=== PATIENT | female | born 1955 | race Caucasian/White ===

== ENCOUNTER 2016-09-19 09:02 | Inpatient (IN) | payer BC ==
--- NOTE | 2016-09-17 02:32 | HP ---
HISTORY AND PHYSICAL: DATE OF SURGERY/ADMISSION: 09/19/16 PROCEDURE: Left total knee arthroplasty. CHIEF COMPLAINT: Left knee pain. HISTORY OF PRESENT ILLNESS: The patient is a very pleasant 61-year-old female, who presents today for history and physical examination prior to undergoing a left total knee arthroplasty. In brief, the patient has had several years of left knee pain, which has been worsening to the point where she is unable to walk half a block without having severe knee pain. She has undergone physical therapy, steroid injections, anti-inflammatories, brace wear, as well as a few arthroscopies; however, has not had adequate pain relief and has elected to undergo a left total knee arthroplasty on 09/19/16, by Dr. Adelaide Grewal. PAST MEDICAL HISTORY: 1. Superficial phlebitis of the left leg. 2. GERD. 3. Hypercholesterolemia. 4. Restless leg syndrome. 5. Asthma. 6. Osteoarthritis. 7. Postmenopausal bleeding. PAST SURGICAL HISTORY: 1. Bilateral carpal tunnel release in . 2. Bilateral knee arthroscopies, left knee x2, right knee x1, in 2001, 2004, and 2003 respectively. 3. Right shoulder surgery including rotator cuff repair. 4. D and C in 2015 for postmenopausal bleeding, negative for malignancy. CURRENT MEDICATIONS: 1. Pantoprazole 40 mg b.i.d. 2. Ropinirole HCL 0.5 mg two tablets daily. 3. Atorvastatin 20 mg daily. 4. Naproxen 220 mg p.r.n. 5. Vitamin D3 at 100 units daily. 6. Montelukast 10 mg p.o. daily. 7. ProAir p.r.n. 8. Multivitamin daily. 9. CPAP machine nightly. ALLERGIES: ZOCOR, CODEINE, causing vomiting and rash; ATROPINE, causing tachycardia; SYMBICORT, causing shortness of breath; ADHESIVE TAPE, causing a rash. FAMILY MEDICAL HISTORY: Father with elevated cholesterol and hypertension. Mother with glaucoma, heart disease, hypertension, lung cancer. Brother with diabetes. Sister with hypothyroidism. 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 No IV drug use. REVIEW OF SYSTEMS: General: Negative for fevers, chills or night sweats. Difficulty with anesthesia. The patient has experienced shortness of breath at the end of anesthesia. HEENT: Negative for headache, lightheadedness or syncopal episodes. Integumentary: Negative for abrasions, lesions or any open wounds. Cardiothoracic: Negative for chest pain, palpitations or edema. Negative for hypertension. Positive for elevated cholesterol. Pulmonary: Negative for shortness of breath with exertion, chronic cough or COPD. History of asthma; however, no recent exacerbation. GI: Negative for nausea, vomiting or constipation. Positive for GERD. : Negative for nocturia, urinary frequency or urgency. No history of UTIs or kidney problems. Musculoskeletal: Positive for left knee pain. Negative for chronic back pain. Negative for neck pain. Neuro: Negative for paresthesias or numbness. No history of seizure , stroke or epilepsy. Endocrine: Positive for borderline diabetes, on diet and weight control. Negative for thyroid issues. Hematologic: Negative for easy bruising, anemia or excessive bleeding. Questionable DVT versus phlebitis in the past. Infectious Disease: Negative for MRSA, hepatitis C or HIV. PHYSICAL EXAMINATION GENERAL: Well appearing, in no acute distress, alert and oriented x3. VITAL SIGNS: Blood pressure 132/72, pulse 80, respirations 16. HEENT: Normocephalic, atraumatic. EOMI. PULMONARY: Lungs clear to auscultation bilaterally. No crackles, rhonchi or wheezes. Negative CVA tenderness bilaterally. CARDIAC: Regular rate and rhythm. No murmurs, gallops or rubs. No edema noted. ABDOMEN: Obese, soft, nontender, nondistended. No organomegaly palpable. NEUROLOGIC: Alert and oriented x3. Cranial nerves grossly intact. Sensation intact to light touch in bilateral lower extremities. MUSCULOSKELETAL: Left knee with range of motion of 5 to 90. Posterior tibial pulses 2+ bilaterally. Positive moderate edema in bilateral lower extremities. The patient is currently wearing compression stockings, nonpitting edema. Negative Porter's sign bilaterally. Positive equal dorsiflexion and plantar flexion. Antalgic gait favoring the left side. DIAGNOSTIC STUDIES/LAB DATA: Left knee x-ray dated 08/09/16, shows degenerative changes in medial compartment of the left knee with mild varus deformity. IMPRESSION AND PLAN: The patient is a very pleasant 61-year-old female, who elected to undergo a left total knee replacement by Dr. Adelaide Grewal on . We reviewed the surgical procedure in detail. The patient had no further questions or concerns. She signed the risks statement. Medications for postoperative pain management including Percocet, Coumadin, and Colace were called in to the patient's pharmacy at the [facility] in [place]. She will follow up with if she has any questions or concerns. She had a preoperative evaluation done by [facility] on 09/06/16, where she was considered an intermediate risk for surgery due to diabetes and was cleared without any additional cardiac testing by Dr. Hannah Colin. CRISTINO INFANTE [id number]/[facility] #: [id number] JO
[~2016-09-19 09:02] MED LIST: Acetaminophen IV 1GM/100ML * 100 ML IVPB ONE; Buffered Lidocaine 1% SYR 3ML* 3 ML/SYR SYRINGE INTRADERM ONE; Famotidine IV* 10 MG/ML 2 ML (20 mg) IV ONE; Gabapentin CAP(*) 300 MG PO ONE; Levalbuterol 0.63MG/3ML NEB INH ONE; Metoclopramide TAB* 10 MG PO ONE; celeCOXIB CAP* 200 MG PO ONE
[2016-09-19] MEDS ORDERED: Gabapentin CAP(*) 300 MG ONE (09:20)
[2016-09-19] MEDS ORDERED: Levalbuterol 1.25MG/0.5ML NEB ONE (09:20)
[2016-09-19] MEDS ORDERED: Famotidine IV* 10 MG/ML 2 ML (20 mg) ONE (09:20)
[2016-09-19] MEDS ORDERED: celeCOXIB CAP* 100 MG ONE (09:20)
[2016-09-19] MEDS ORDERED: Metoclopramide TAB* 10 MG ONE (09:20)
[2016-09-19] MEDS ORDERED: ceFAZolin 2 GM PREMIX (*) 2 GM/50 ML BAG IVPB ONE (09:21)
[2016-09-19] MEDS ORDERED: Buffered Lidocaine 1% SYR 3ML* 3 ML/SYR SYRINGE ONE (09:21)
[2016-09-19] MEDS ORDERED: Acetaminophen IV 1GM/100ML * 100 ML ONE (09:25)
[2016-09-19] MEDS ORDERED: Dexamethasone IV* 4 MG/ML 1 ML (4 MG) ONE (10:54)
[2016-09-19] MEDS ORDERED: Morphine PF AMP (0.5MG/ML)* 5 MG/10 ML AMP ONE (10:54)
[2016-09-19] MEDS ORDERED: Lidocaine 2% MPF* 2 ML VIAL ONE (10:54)
[2016-09-19] MEDS ORDERED: Midazolam* 1 MG/ML 5 ML VIAL (5 MG) ONE (10:54)
[2016-09-19] MEDS ORDERED: KETAMINE HCL* 50 MG/ML 10 ML VIAL ONE (10:54)
[2016-09-19] MEDS ORDERED: Ondansetron INJ* 2 MG/ML VIAL ONE (10:54)
[2016-09-19] MEDS ORDERED: Bupivacaine 0.5% SDV PF* 30 ML VIAL ONE (10:54)
[2016-09-19] MEDS ORDERED: fentaNYL* 50 MCG/ML 2 ML VIAL (100 MCG VIAL) ONE (10:54)
[2016-09-19] MEDS ORDERED: Propofol* 10 MG/ML 20 ML BTL IV PUSH ONE (10:54)
[2016-09-19] MEDS ORDERED: Midazolam* 1 MG/ML 2 ML VIAL (2 MG) ONE (11:53)
[2016-09-19] MEDS ORDERED: Propofol* 500 MG/50 ML BTL ONE (12:09)
[2016-09-19] MEDS ORDERED: Phenylephrine INJ* 10 MG/ML 1 ML VIAL (10 MG) ONE (12:22)
[2016-09-19] MEDS ORDERED: fentaNYL* 50 MCG/ML 2 ML VIAL (100 MCG VIAL) IV PRN (13:11)
[2016-09-19] MEDS ORDERED: Ondansetron INJ* 2 MG/ML VIAL IV PRN ×2 (13:17)
[2016-09-19] MEDS ORDERED: diPHENhydraMINE IV* 50 MG/ML 1 ml VIAL (BENADRYL) IV PRN (13:17)
[2016-09-19] MEDS ORDERED: Naloxone* 0.4 MG/ML 1 ML VIAL IV PRN (13:17)
[2016-09-19] MEDS ORDERED: oxyCODONE/Acetamin 5/325 MG* TAB PO PRN (13:17)
[2016-09-19] MEDS ORDERED: EPHEDrine (Pressors)* 50 MG/ML VIAL IV PUSH PRN (13:26)
[2016-09-19] MEDS ORDERED: Ropivacaine* 300 MG in NS 0.9% 250 ML* 240 ML EPIDURAL SCH (14:00)
[2016-09-19] MEDS ORDERED: Morphine INJ* 2 MG/ML 1 ML CARPUJECT IV PRN (14:29)
[2016-09-19] MEDS ORDERED: Polyethylene Glycol 3350* 17 GM PACKET PO PRN (14:29)
[2016-09-19] MEDS ORDERED: Magnesium Hydroxide LIQ* 30 ML UDC PO PRN (14:29)
[2016-09-19] MEDS ORDERED: Acetaminophen TAB* 325 MG PO PRN (14:29)
[2016-09-19] MEDS ORDERED: Bisacodyl SUPP* 10 MG SUPP PR PRN (14:29)
[2016-09-19] MEDS ORDERED: Albuterol HFA INHALER* 8 gm MDI INH PRN (14:34)
[2016-09-19] MEDS ORDERED: Furosemide TAB* 20 MG PO PRN (14:34)
[2016-09-19] MEDS ORDERED: Dextrose 50% Syringe 50 ML* 25 GM/50 ML SYRINGE IV PUSH PRN (14:46)
--- NOTE | 2016-09-19 15:08 | RAD ---
Indication: Post op LEFT total knee replacement. Comparison: August 09, 2016 radiographs. Technique: Portable AP and cross table lateral views LEFT knee. Report: Status post total knee replacement. Post-op fluid and gas is seen in the joint space and anterior subcutaneous tissues. Alignment is anatomic. No periprosthetic fracture evident. IMPRESSION: Normal post-op appearance following LEFT total knee replacement.
[2016-09-19] MEDS ORDERED: Warfarin TAB(*) 6 MG PO ONE (17:00)
--- NOTE | 2016-09-19 17:21 | CONS ---
CONSULTATION REPORT: DATE OF CONSULT: 09/19/16 REQUESTING PHYSICIAN FOR CONSULT: Dr. Grewal. ATTENDING PHYSICIAN WHILE IN THE HOSPITAL: Dr. Mike Mead (report being dictated by Brett Kan NP). PRIMARY CARE PROVIDER: Dr. Long. REASON FOR MEDICAL CONSULT: Medical management of comorbid medical conditions. HISTORY OF PRESENT ILLNESS: I refer you to Dr. Grewal's H and P for further details. In short, Ms. Gunter is a 61-year-old female patient. She has a history of impaired hyperlipidemia, history of restless legs syndrome, asthma, arthritis, hypothyroidism, history of aortic regurg, history of ANALY, and diabetes, not on medications as of yet, she comes in to the hospital today for an elective left total knee as she has in the outpatient setting been having significant pain and it has been affecting her activities of daily living. Conservative management was attempted; however, despite this, the patient continued to have significant pain and it was felt that she would benefit from a total knee replacement on the left side. She was evaluated in the PACU. She said she feels a little lightheaded, but denies feeling like she is going to faint. She denies any syncope. Denies any chest pain or shortness of breath. She says she feels tired. She denies any nausea. She says that she is unable to feel her lower extremities at this point, she did have an epidural and spinal. She denies having any abdominal discomfort or any chest pain or shortness of breath. Again, she does have a fairly significant medical history and the hospitalist service was asked to evaluate and to help manage. PAST MEDICAL HISTORY: Significant for: 1. GERD. 2. Hyperlipidemia. 3. Restless legs syndrome. 4. Asthma. 5. Arthritis. 6. Hypothyroidism. 7. Aortic regurg. 8. ANALY. 9. Diabetes. Her last A1c according to medical records was 7.1 according to the records sent from Dr. Long's office. PAST SURGICAL HISTORY: 1. She has had a carpal tunnel. 2. Just had a left total knee replacement. 3. D and C. 4. Knee arthroscopies bilaterally. 5. Rotator cuff repair. MEDICATIONS: Home medications include: 1. Ropinirole 2 tabs p.o. at bedtime. 2. Protonix 40 mg p.o. b.i.d. 3. Naproxen 2 tablets p.o. b.i.d. 4. Multivitamin 1 tablet daily. 5. Singulair 10 mg p.o. at bedtime. 6. Lasix 20 mg daily as needed. 7. Vitamin D3 2000 units p.o. daily. 8. Lipitor 20 mg daily. 9. Albuterol 2 puffs q.4 hours as needed. 10. Tylenol 650 mg p.o. every 4 hours as needed. ALLERGIES TO MEDICATIONS: Include ATENOLOL, ATROPINE, SIMVASTATIN, CODEINE, ADHESIVE TAPE, SYMBICORT, and EKG PADS. FAMILY HISTORY: Mother had a history of lung cancer. Father, history of colon cancer. SOCIAL HISTORY: She does not smoke, does not drink. She works as a nurse. Surrogate decision maker not appointed at this point. REVIEW OF SYSTEMS: There is no documented fever. She denies having any significant weight change. There was no double vision. There is no ear discharge. She denies having any rhinorrhea. No sore throat, no thyroid enlargement. Denies having any chest pain. There was no orthopnea, no nocturnal dyspnea. There is no abdominal pain. No nausea, no vomiting. No dysuria, no frequency. No loss of consciousness. No pruritus, and no skin ulceration s. Review of 14 systems completed, all others negative. PHYSICAL EXAM: Blood pressure 136/75 with a pulse of 89, respirations 18, O2 sat 99%, temperature 97.7. General: At this time, Ms. Gunter is a 61-year- old female patient. She is sitting in the PACU stretcher. She does not appear to be in any acute distress. She is awake and alert. She is oriented x3. HEENT: Head atraumatic, normocephalic. Eyes: EOMs are intact. Sclerae anicteric. Not pale. Neck: Supple. Throat: Oral mucosa appears to be moist. No oropharyngeal erythema. Heart: Sounds, S1, S2. Regular rate and rhythm. She did have a grade 2 to 3 systolic aortic murmur heard. Lungs: Clear to auscultation bilaterally. No wheezes, rales, or rhonchi. Abdomen: Soft, flat, nontender. Bowel sounds present. Extremities: Distal CSM checks were intact. She is unable to dorsiflex the feet at this point and sensation is not there at this point because of the epidural and spinal, but she does have good bilateral pulses and her feet are warm. She is able to move the upper extremities with 5/5 strength. Neurologically, she awakens to her name. She is alert, she is oriented x3. She had no gross focal deficits. Speech is clear. Her skin is intact with the exception to the left leg, she has an incision that is covered with an Azeem bandage, it is clean, dry, and intact. DIAGNOSTIC STUDIES/LAB: Her labs preoperatively revealed WBC of 6.3, RBC of 4.45, hemoglobin 13.1, hematocrit of 39, platelet count of 270. Sodium 136, potassium 4.2, chloride 106, bicarb 30, BUN 19, creatinine of 0.92, glucose of 129. Her A1c again according to Dr. Long's record is 7.1. Urine preop was negative. EKG preoperatively showed a normal sinus rhythm. No ST elevation or T-wave inversion, rate of 68. Old medical records were reviewed. ASSESSMENT AND PLAN: Ms. Gunter is a 61-year-old female patient coming into orthopedic service today for an elective left total knee. Hospitalist service was asked to evaluate in consult for medical management of comorbid medical conditions. Recommendations at this point are: 1. Status post left total knee replacement: We will defer the management of this to Dr. Grewal and her team. 2. Gastroesophageal reflux disease: Continue PPI therapy. 3. Hyperlipidemia: Continue current medical regimen. She is on Lipitor. 4. Restless legs syndrome: Continue meds as prescribed. 5. Asthma: P.r.n. albuterol has been ordered. We will continue with this and follow along. Her lungs are clear. We will need to follow with aggressive pulmonary toileting. 6. Arthritis: Continue meds as prescribed. 7. Hypothyroidism: Currently, not an active issue. Should follow up with primary. She does not want to take medications. 8. History of aortic regurgitation: Follow with the primary. Not an active issue currently. 9. Obstructive sleep apnea: I have ordered CPAP and overnight oximetry. 10. Diabetes: Because of the recent surgery, I did put her on a sliding scale. 11. DVT prophylaxis: Deferred to the primary team. 12. Fluids, electrolytes, nutrition: I would recommend a consistent carb diet. 13. Code status, full code. TIME SPENT: On the consult was approximately 60 minutes, greater than half the time was spent [id number] with the patient obtaining my history and physical, other half the time spent going over the plan of care with the patient and implementing plan of care. I did discuss the plan of care with my attending, Dr. Mead; he is in agreement. BRETT KAN NP CC: Dr. Long; Dr. Grewal * [id number]/[facility] #: [id number] MTDD
[2016-09-19] MEDS ORDERED: ceFAZolin 1 GM in Dextrose (*) 1 GM/50 ML BAG IVPB SCH (17:30)
[2016-09-19] MEDS: Insulin LISPRO* 1 UNITS UNIT SUBCUT SCH (17:49)
[2016-09-19] MEDS: Atorvastatin* 20 MG TAB PO SCH (18:13)
[2016-09-19] MEDS: ceFAZolin 1 GM in Dextrose (*) 1 GM/50 ML BAG IVPB SCH (20:13)
[2016-09-19] MEDS: Docusate CAP* 100 MG PO SCH (20:15)
[2016-09-19] MEDS: rOPINIRole TAB* 1 MG PO SCH (20:15)
[2016-09-19] MEDS: Montelukast Sodium TAB* 10 MG PO SCH (20:15)
[2016-09-19] MEDS: Omeprazole CAP* 20 MG PO SCH (20:15)
[2016-09-19] MEDS: oxyCODONE/Acetamin 5/325 MG* TAB PO PRN (20:19)
[2016-09-20] MEDS: oxyCODONE/Acetamin 5/325 MG* TAB PO PRN ×4 (00:21→12:15)
[2016-09-20] MEDS: ceFAZolin 1 GM in Dextrose (*) 1 GM/50 ML BAG IVPB SCH ×2 (03:37→12:15)
[2016-09-20] MEDS ORDERED: Ondansetron TAB* 4 MG PO PRN (03:45)
[2016-09-20] MEDS ORDERED: diPHENhydraMINE IV* 50 MG/ML 1 ml VIAL (BENADRYL) IV PRN (03:45)
[2016-09-20] MEDS ORDERED: Ondansetron INJ* 2 MG/ML VIAL IV PRN (03:45)
[2016-09-20] MEDS: oxyCODONE TAB* 5 MG TAB PO PRN ×3 (05:57→18:13)
[2016-09-20 07:07] LABS: Hematocrit 35 % (35-47); Hemoglobin 11.5 g/dl (12.0-16.0); Mean Corpuscular HGB Conc 33 g/dl (31-36); Mean Corpuscular Hemoglobin 29 pg (27-31); Mean Corpuscular Volume 88 fL (80-97); Mean Platelet Volume 8 um3 (7.4-10.4); Red Blood Count 3.92 10^6/ul (4.0-5.4); Red Cell Distribution Width 14 % (10.5-15); White Blood Count 8.8 10^3/ul (3.5-10.8)
[2016-09-20 07:14] LABS: BUN/Creatinine Ratio 17.6 (8-20); Calcium 8.8 mg/dL (8.6-10.3); EGFR African American 80.6 (>60); EGFR Non-African American 62.6 (>60)
--- NOTE | 2016-09-20 07:45 | PN ---
Progress Note - Progress Note SOAP: Subjective: Pt. reports pain is controlled, thigh and posterior knee pain this AM. Objective: LLE - dressing c/d/i. distally +df/pf, full sens lt, 2+ dp pulse. Vital Signs: Temp Pulse Resp BP Pulse Ox 98.4 F 76 16 109/53 99 09/20/16 04:01 09/20/16 04:01 09/20/16 05:57 09/20/16 04:01 09/20/16 04:01 Laboratory Results - last 24 hr 09/19/16 09/19/16 09/20/16 17:25 20:39 06:42 WBC 8.8 RBC 3.92 L Hgb 11.5 L Hct 35 MCV 88 MCH 29 MCHC 33 RDW 14 Plt Count 258 MPV 8 Neut % (Auto) 78.2 Lymph % (Auto) 14.9 L [place] % (Auto) 6.8 Eos % (Auto) 0 Baso % (Auto) 0.1 Absolute Neuts (auto) 6.9 Absolute Lymphs (auto) 1.3 Absolute Monos (auto) 0.6 Absolute Eos (auto) 0 Absolute Basos (auto) 0 Absolute Nucleated RBC 0 Nucleated RBC % 0 INR (Anticoag Therapy) Sodium Potassium Chloride Carbon Dioxide Anion Gap BUN Creatinine Est GFR ( Amer) Est GFR (Non-Af Amer) BUN/Creatinine Ratio Glucose POC Glucose (mg/dL) 202 H 261 H Calcium 09/20/16 09/20/16 09/20/16 06:42 06:42 07:23 WBC RBC Hgb Hct MCV MCH MCHC RDW Plt Count MPV Neut % (Auto) Lymph % (Auto) [place] % (Auto) Eos % (Auto) Baso % (Auto) Absolute Neuts (auto) Absolute Lymphs (auto) Absolute Monos (auto) Absolute Eos (auto) Absolute Basos (auto) Absolute Nucleated RBC Nucleated RBC % INR (Anticoag Therapy) 1.20 H Sodium 134 Potassium 4.0 Chloride 100 L Carbon Dioxide 28 Anion Gap 6 BUN 16 Creatinine 0.91 Est GFR ( Amer) 80.6 Est GFR (Non-Af Amer) 62.6 BUN/Creatinine Ratio 17.6 Glucose 175 H POC Glucose (mg/dL) 182 H Calcium 8.8 Assessment: 61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 d/c to home with vns possible tomorrow.
[2016-09-20] MEDS: Omeprazole CAP* 20 MG PO SCH ×2 (08:09→20:41)
[2016-09-20] MEDS: Docusate CAP* 100 MG PO SCH ×2 (08:09→20:41)
[2016-09-20] MEDS: Insulin LISPRO* 1 UNITS UNIT SUBCUT SCH ×3 (08:09→18:07)
[2016-09-20] MEDS: Vitamin THERAPEUTIC TAB PO SCH (08:09)
--- NOTE | 2016-09-20 10:03 | OP ---
OPERATIVE NOTE: DATE OF SURGERY: 09/19/16 DATE OF : 53 ATTENDING SURGEON: Adelaide Grewal MD PIPE CUTTER: CRISTINO Lizama ANESTHESIOLOGIST: Dr. Jaimes. ANESTHESIA: Spinal. PRE-OP DIAGNOSIS: Severe end-stage degenerative osteoarthritis of the left knee joint. POST-OP DIAGNOSIS: Severe end-stage degenerative osteoarthritis of the left knee joint. OPERATIVE PROCEDURE: Left total knee arthroplasty. COMPLICATIONS: None. TOURNIQUET TIME: 63 minutes. ESTIMATED BLOOD LOSS: 200 cc. SPECIMEN: Bone and cartilage from the left knee joint sent to pathology. HARDWARE USED: This is cemented [employer] total knee hardware with 2 packages of Simplex bon e cement. For the femur, a size 4 left Oxinium femoral component. For the tibia, a size 4 left tib ial baseplate. An 11 mm posterior stabilized articular insert and a 29-mm 3-peg all-poly patella. BRIEF HISTORY: Ms. Gunter is a 61-year-old female with years of increasingly severe left knee pain . She failed conservative treatment with anti-inflammatories, pain medication, physical therapy, at tempted weight loss, and intraarticular injections. Radiographs and physical exam confirmed bone-on -bone severe end-stage arthritis to the left knee joint. She elected to undergo left total knee art hroplasty due to continued pain and decreased quality of life. Informed consent was obtained from the patient. She understood the risks of the surgery included, b ut were not limited to bleeding, infection, damage to nearby structures, continued pain, need for fu rther surgery, intraoperative fracture, nerve palsy, hardware failure or loosening, stroke, heart at tack, blood clot, and . She wished to proceed. INTRAOPERATIVE FINDINGS: Intraoperatively, the patient was noted to have severe end-stage arthritis of the medial and patellofemoral compartments with complete loss of cartilage and extensive osteoph yte formation. DESCRIPTION OF PROCEDURE: Ms. Gunter was identified in the preanesthesia unit. Her left lower extr emity was marked as the correct operative side. Consent was signed and placed in the chart. The pa tient was taken to the operating room and placed under spinal anesthesia. A Cary catheter was plac ed. Tourniquet was placed on the left side. Left lower extremity was prepped and draped in the usu al sterile fashion. Preop time-out was made to correctly identify the patient's side and site. Ricardo ropriate perioperative antibiotics were given within 1 hour of incision. Tourniquet was inflated and total tourniquet time for this procedure was 63 minutes. A 14-cm midlin e incision was made with a 10 blade. This was carried down through the subcutaneous fat and the ext ensor mechanism. The extensor mechanism was then opened and using a standard medial parapatellar ar throtomy. Patella was subluxed laterally. Electrocautery was used to subperiosteally elevate soft tissue off the superomedial tibia to the midsagittal plane. The knee was flexed up. The anterior h orn of the lateral meniscus and the ACL were completely released. A drill was used to enter the dis nilam femur. Intramedullary distal femoral cutting guide was pinned into position on the distal femur . Oscillating saw was used to make the appropriate distal femoral cuts. Next, the external rotation guide was placed on the distal femur. The femur was sized to a size 4. A size 4 multi-cutting jig was pinned on the distal femur and the oscillating saw was used to make the appropriate 4 chamfer cuts. All bony fragments were carefully removed. The PCL was completely released and the tibia was subluxed anteriorly. Extramedullary tibial cutting guide was pinned on the proximal tibia. Oscillating saw was used to make the appropriate proximal tibial cut. The bone was carefully removed. The knee was brought out into extension. There was go od medial and lateral ligamentous balancing. The knee had full extension. Flexion and extension ga ps were well balanced. The knee was flexed up and lamina stations superintendent was placed both medially and late rally. Any remaining meniscus was carefully removed using electrocautery. Any posterior femoral co ndylar osteophytes were removed using a curved osteotome and curette. Trial left size 4 femur was impacted onto the distal femur and had good fit. The box for the senior cognos developer ior stabilized implant was prepared using a reamer and box cut osteotome. A trial size 4 tibial tra y and 9-mm insert trial was placed. The knee was taken through a range of motion and noted to have full extension and 120 degrees of flexion with good patellofemoral tracking. The patella was everted. A 9-mm of patellar bone and cartilage was carefully removed with an oscill ating saw. The patella was sized to a size 29. The 3-peg holes were drilled through the size 29 gu melody. A trial 29 patella was placed and the knee was taken through a range of motion. There was sat isfactory patellofemoral tracking. All trials were carefully removed. The tibia was subluxed anteriorly and sized to a size 4. Proxim al tibia was prepared using a keel punch. All bony cut surfaces were copiously irrigated with steri le saline and dried. The final implants were cemented into place starting with the tibia followed b y the femur and last the patella. An 11-mm insert trial was placed while the knee was brought out i nto full extension. The cement was allowed to fully cure and the tourniquet was turned down at 63 m inutes. Once the cement was fully cured, the insert trial was removed. The capsule was checked for any bleeding or excess cement. Trial insert chosen was an 11-mm posterior stabilized articular ins ert. This was locked into position on the tibial tray. Stability of the insert was checked and rec hecked and noted to be stable. The knee was copiously irrigated with sterile saline. The extensor mechanism was closed using inter rupted #1 Vicryl's. The rest of the incision was closed in a layered fashion using 0 and 2-0 Vicryl 's. Skin was closed using running 3-0 nylon suture. Sterile Xeroform, 4x4's, and Webril were used to cover the incision. Azeem wrap and cold pack were placed over this. The patient's anesthesia was r eversed without difficulty. She was taken to the PACU in stable condition. Intended weightbearing will be weightbearing as tolerated. Intended DVT prophylaxis will be Coumadin with a Lovenox bridge . [id number]/[facility] #: [id number]
[2016-09-20] MEDS: Enoxaparin(*) 30 MG/0.3 ML SYR SUBCUT SCH (12:15)
[2016-09-20] MEDS ORDERED: Warfarin TAB(*) 4 MG PO ONE (17:00)
--- NOTE | 2016-09-20 17:13 | PN ---
Subjective Date of Service: 09/20/16 Interval History: Patient seen this afternoon. Reports she had been having double vision that began shortly after PT this afternoon. Says her eyes feel very dry. During my examination the double vision resolved but the dryness and blinking persisted. Otherwise states she has been doing OK, pain is fairly well controlled. Family History: Unchanged from Admission Social History: Unchanged from Admission Past Medical History: Unchanged from Admission Objective Active Medications: Acetaminophen (Tylenol Tab*) 650 mg PO Q4H PRN Albuterol (Ventolin Hfa Inhaler*) 2 puff INH Q4H PRN Atorvastatin Calcium (Lipitor*) 20 mg PO QPM AMY Bisacodyl (Dulcolax Supp*) 10 mg MN DAILY PRN Dextrose (D50w Syringe 50 Ml*) 12.5 gm IV PUSH .FOR FS < 60 - SS PRN Diphenhydramine HCl (Benadryl Iv*) 12.5 mg IV Q6H PRN Docusate Sodium (Colace Cap*) 100 mg PO BID AMY Enoxaparin Sodium (Lovenox(*)) 30 mg SUBCUT Q24H AMY Lactated Ringer's (Lactated Ringers 1000 Ml Bag*) 1,000 mls @ 100 mls/hr IV PER RATE AMY Insulin Human Lispro (Humalog*) 0 units SUBCUT AC AMY Lactulose (Lactulose*) 30 ml PO Q6H PRN Magnesium Hydroxide (Milk Of Magnesia Liq*) 30 ml PO Q6H PRN Montelukast Sodium (Singulair Tab*) 10 mg PO BEDTIME AMY Morphine Sulfate (Morphine Inj (Syringe)*) 2 mg IV Q2H PRN Multivitamins (Theragran Tab*) 1 tab PO DAILY AMY Omeprazole (Prilosec Cap*) 20 mg PO BID AMY Ondansetron HCl (Zofran Inj*) 4 mg IV Q6H PRN Ondansetron HCl (Zofran Tab*) 4 mg PO Q6H PRN Oxycodone HCl (Roxycodone Tab*) 10 mg PO Q4H PRN Oxycodone/Acetaminophen (Percocet 5/325 Tab*) 1 tab PO Q3H PRN Oxycodone/Acetaminophen (Percocet 5/325 Tab*) 2 tab PO Q3H PRN Polyethylene Glycol/Electrolytes (Miralax*) 17 gm PO DAILY PRN Polyvinyl Alcohol (Polyvinyl Alcohol 1.4% Opth*) 1 drop BOTH EYES Q2H PRN Ropinirole HCl (Requip Tab*) 1 mg PO BEDTIME AMY Vital Signs 09/19/16 09/19/16 09/19/16 18:00 18:28 18:34 Temperature 98.2 F Pulse Rate 93 Respiratory 18 16 Rate Blood Pressure 152/69 (mmHg) O2 Sat by Pulse 98 98 Oximetry 09/19/16 09/19/16 09/19/16 19:03 19:40 20:12 Temperature 98.2 F 98.8 F Pulse Rate 93 111 Respiratory 16 16 16 Rate Blood Pressure 120/69 143/79 (mmHg) O2 Sat by Pulse 96 98 96 Oximetry 09/20/16 09/20/16 09/20/16 12:15 14:15 15:49 Temperature 97.9 F Pulse Rate 94 Respiratory 18 18 20 Rate Blood Pressure 124/71 (mmHg) O2 Sat by Pulse 96 Oximetry Oxygen Devices in Use Now: None Appearance: Middle-aged, F, laying in chair in NAD Eyes: No Scleral Icterus Ears/Nose/Mouth/Throat: Mucous Membranes Moist Neck: NL Appearance and Movements; NL JVP Respiratory: Symmetrical Chest Expansion and Respiratory Effort, Clear to Auscultation Cardiovascular: RRR, - - NATALIE Abdominal: NL Sounds; No Tenderness; No Distention Lymphatic: No Cervical Adenopathy Extremities: No Edema Skin: No Rash or Ulcers Neurological: Alert and Oriented x 3, - - network architect intact, normal EOM, no misalignment in vision, PERRLA, frequent blinking, some muscle fasciculations in R lower eye lid Result Diagrams: 09/20/16 06:42 09/20/16 06:42 Assess/Plan/Problems-Billing Assessment: 61 yo F with hx of HLD, hypothyroidism, GERD, RLS, ANALY, DM s/p elective L TKA, course complicated by diplopia - Patient Problems (1) Diplopia Current Visit: Yes Comment: Seems to have resolved, EOM appeared normal on exam even during the episode, does not appear to be CN palsy. Will recheck electrolytes as well as TSH. Will get non-con CT head. If persists would recommend neurology consult. (2) S/P total knee arthroplasty Current Visit: Yes Comment: management, analgesia, AC as per ortho (3) GERD (gastroesophageal reflux disease) Current Visit: Yes Comment: Continue PPI (4) Diabetes Current Visit: Yes Comment: Continue SSI (5) Hypothyroidism Current Visit: Yes Comment: TSH pending. (6) DVT prophylaxis Current Visit: Yes Comment: Lovenox/Coumadin
[2016-09-20 17:55] LABS: BUN/Creatinine Ratio 16.7 (8-20); Calcium 8.9 mg/dL (8.6-10.3); EGFR African American 75.7 (>60); EGFR Non-African American 58.9 (>60); Phosphorus 2.6 mg/dL (2.5-5.0)
[2016-09-20] MEDS: Atorvastatin* 20 MG TAB PO SCH (18:07)
--- NOTE | 2016-09-20 18:07 | RAD ---
Indication: Diplopia. Comparison: None. Technique: Noncontrast CT vertex of skull through foramen magnum. Report: The sulci, ventricles, and basal cisterns are normal for age. Mann matter white matter differentiation is preserved without evidence for edema. No intra or extra axial hemorrhage, mass, or fluid collection detected. Unremarkable orbital contents. Unremarkable calvarium and skull base. Unremarkable scalp. The visualized paranasal sinuses and mastoid air spaces are clear. IMPRESSION: Negative unenhanced head CT.
[2016-09-20 18:31] LABS: TSH (Thyroid Stimulating Horm) 1.31 mcIU/mL (0.34-5.60)
[2016-09-20] MEDS: rOPINIRole TAB* 1 MG PO SCH (20:40)
[2016-09-20] MEDS: Montelukast Sodium TAB* 10 MG PO SCH (20:40)
[2016-09-20] MEDS: Artificial Tears* 15 ML BTL BOTH EYES PRN (20:41)
[2016-09-21] MEDS: oxyCODONE/Acetamin 5/325 MG* TAB PO PRN ×2 (00:30→20:58)
[2016-09-21 06:13] LABS: Hematocrit 31 % (35-47); Hemoglobin 10.4 g/dl (12.0-16.0)
[2016-09-21] MEDS: Artificial Tears* 15 ML BTL BOTH EYES PRN ×2 (07:32→20:59)
[2016-09-21] MEDS: oxyCODONE TAB* 5 MG TAB PO PRN ×3 (07:32→15:46)
[2016-09-21] MEDS: Docusate CAP* 100 MG PO SCH ×2 (08:32→20:58)
[2016-09-21] MEDS: Insulin LISPRO* 1 UNITS UNIT SUBCUT SCH ×3 (08:32→17:23)
[2016-09-21] MEDS: Omeprazole CAP* 20 MG PO SCH ×2 (08:33→20:58)
[2016-09-21] MEDS: Vitamin THERAPEUTIC TAB PO SCH (08:33)
--- NOTE | 2016-09-21 09:05 | PN ---
Progress Note - Progress Note SOAP: Subjective: [Pt was seen sitting back in the chair today. Pt states that her pain is a 4 out of 10 this am but she had just taken her oxycodone. Pt states that she has yet to have a bowel movement but she is passing gas. She states that she is no longer having any double vision but she does admit to having some "wavy vision" . Pt deneis any TALBERT, nausea, vomiting, chest pain, calf pain or SOB. ] Objective: [General: pt is alert, awake and oriented. Appears in no acute distress MSK: LLE dressing c/d/i. Neurovascularly intact distally. Pt is able to dorsiflex and planterflex and wiggle toes. 2+ dp pulse.] Vital Signs Temp 98.5 F 09/21/16 07:47 Pulse 108 09/21/16 07:47 Resp 18 09/21/16 08:00 BP 113/55 09/21/16 07:47 Pulse Ox 95 09/21/16 08:00 Intake & Output 09/20/16 09/21/16 09/21/16 18:59 06:59 18:59 Intake Total 1287 620 Output Total 1800 500 500 Balance -513 120 -500 Intake: IV Fluids 372 LR 372 IVPB 115 cefazolin 115 Oral 800 620 Output: Urine 1100 500 500 Cary 700 Other: Estimated Void Medium Assessment: [POD#2 LTKA] Plan: [Pt will continue with current anticoagulation therapy Pt will continue with current pain regiment Pt is currently taking Colace, MOM and prune juice. Pt will be re-evaluated tomorrow, taking into account vision issues, for possible discharge. ]
[2016-09-21] MEDS: Enoxaparin(*) 30 MG/0.3 ML SYR SUBCUT SCH (11:45)
--- NOTE | 2016-09-21 13:45 | PN ---
Subjective Date of Service: 09/21/16 Interval History: Patient seen this afternoon. Says she has not had any further double vision but vision is somewhat blurry at times. Also noted that she had trouble keeping her eyelids open last night and again this morning. She does not think this was from fatigue. The episode from this morning resolved. No headaches. Knee pain is present but fairly well controlled. Family History: Unchanged from Admission Social History: Unchanged from Admission Past Medical History: Unchanged from Admission Objective Active Medications: Acetaminophen (Tylenol Tab*) 650 mg PO Q4H PRN PRN Reason: PAIN OR TEMPERATURE Albuterol (Ventolin Hfa Inhaler*) 2 puff INH Q4H PRN PRN Reason: SHORTNESS OF BREATH Atorvastatin Calcium (Lipitor*) 20 mg PO QPM [facility] Last Admin: 09/20/16 18:07 Dose: 20 mg Bisacodyl (Dulcolax Supp*) 10 mg MT DAILY PRN PRN Reason: constipation Dextrose (D50w Syringe 50 Ml*) 12.5 gm IV PUSH .FOR FS < 60 - SS PRN PRN Reason: FS < 60 Diphenhydramine HCl (Benadryl Iv*) 12.5 mg IV Q6H PRN PRN Reason: PRURITIS Docusate Sodium (Colace Cap*) 100 mg PO BID [facility] Last Admin: 09/21/16 08:32 Dose: 100 mg Enoxaparin Sodium (Lovenox(*)) 30 mg SUBCUT Q24H [facility] Last Admin: 09/21/16 11:45 Dose: 30 mg Lactated Ringer's (Lactated Ringers 1000 Ml Bag*) 1,000 mls @ 100 mls/hr IV PER RATE [facility] Last Admin: 09/20/16 03:37 Dose: 100 mls/hr Insulin Human Lispro (Humalog*) 0 units SUBCUT AC [facility] PRN Reason: Protocol Last Admin: 09/21/16 12:55 Dose: 3 units Lactulose (Lactulose*) 30 ml PO Q6H PRN PRN Reason: constipation Magnesium Hydroxide (Milk Of Magnesia Liq*) 30 ml PO Q6H PRN PRN Reason: constipation Last Admin: 09/21/16 08:33 Dose: 30 ml Montelukast Sodium (Singulair Tab*) 10 mg PO BEDTIME [facility] Last Admin: 09/20/16 20:40 Dose: 10 mg Morphine Sulfate (Morphine Inj (Syringe)*) 2 mg IV Q2H PRN PRN Reason: PAIN Multivitamins (Theragran Tab*) 1 tab PO DAILY [facility] Last Admin: 09/21/16 08:33 Dose: 1 tab Omeprazole (Prilosec Cap*) 20 mg PO BID [facility] Last Admin: 09/21/16 08:33 Dose: 20 mg Ondansetron HCl (Zofran Inj*) 4 mg IV Q6H PRN PRN Reason: nausea Ondansetron HCl (Zofran Tab*) 4 mg PO Q6H PRN PRN Reason: NAUSEA Last Admin: 09/20/16 14:08 Dose: 4 mg Oxycodone HCl (Roxycodone Tab*) 10 mg PO Q4H PRN PRN Reason: SEVERE PAIN Last Admin: 09/21/16 11:45 Dose: 10 mg Oxycodone/Acetaminophen (Percocet 5/325 Tab*) 1 tab PO Q3H PRN PRN Reason: PAIN - MODERATE Last Admin: 09/21/16 00:30 Dose: 1 tab Oxycodone/Acetaminophen (Percocet 5/325 Tab*) 2 tab PO Q3H PRN PRN Reason: PAIN - MODERATE Last Admin: 09/20/16 12:15 Dose: 2 tab Pharmacy Profile Note (Coumadin Daily Reminder*) 1 note FOLLOW UP 1700 [facility] Polyethylene Glycol/Electrolytes (Miralax*) 17 gm PO DAILY PRN PRN Reason: Constipation Polyvinyl Alcohol (Polyvinyl Alcohol 1.4% Opth*) 1 drop BOTH EYES Q2H PRN PRN Reason: DRY EYE Last Admin: 09/21/16 07:32 Dose: 1 drop Ropinirole HCl (Requip Tab*) 1 mg PO BEDTIME [facility] Last Admin: 09/20/16 20:40 Dose: 1 mg Warfarin Sodium (Coumadin Tab(*)) 4 mg PO ONCE@1700 ONE PRN Reason: Protocol Stop: 09/21/16 17:01 Vital Signs 09/20/16 09/20/16 09/20/16 14:15 15:49 16:00 Temperature 97.9 F Pulse Rate 94 Respiratory 18 20 Rate Blood Pressure 124/71 (mmHg) O2 Sat by Pulse 96 96 Oximetry 09/20/16 09/20/16 09/20/16 18:13 18:49 19:27 Temperature 98.7 F Pulse Rate 92 Respiratory 18 16 Rate Blood Pressure 117/50 (mmHg) O2 Sat by Pulse 96 95 Oximetry 09/21/16 12:15 Temperature 97.8 F Pulse Rate 113 Respiratory 18 Rate Blood Pressure 126/60 (mmHg) O2 Sat by Pulse 99 Oximetry Oxygen Devices in Use Now: None Appearance: Middle-aged, F, laying in chair in NAD Eyes: No Scleral Icterus Ears/Nose/Mouth/Throat: Mucous Membranes Moist Neck: NL Appearance and Movements; NL JVP Respiratory: Symmetrical Chest Expansion and Respiratory Effort, Clear to Auscultation Cardiovascular: NL Sounds; No Murmurs; No JVD, RRR Abdominal: NL Sounds; No Tenderness; No Distention Lymphatic: No Cervical Adenopathy Extremities: - - LLE with cryopack in place, IRINA wrap Skin: No Rash or Ulcers Neurological: Alert and Oriented x 3, - - CN II-XII intact, no ptosis noted Result Diagrams: 09/21/16 05:42 09/20/16 17:25 Assess/Plan/Problems-Billing Assessment: 61 yo F with hx of HLD, hypothyroidism, GERD, RLS, ANALY, DM s/p elective L TKA, course complicated by diplopia - Patient Problems (1) Diplopia Current Visit: Yes Comment: Unclear what to make of symptoms. Drops seemed to have improved the dry eyes but still with some blurry vision, now with reported drooping of eyelids although not totally consistent with MG. Labs WNL, CT head negative. Have asked Dr. Tolbert of neurology to evaluate the patient. (2) S/P total knee arthroplasty Current Visit: Yes Comment: management, analgesia, AC as per ortho (3) GERD (gastroesophageal reflux disease) Current Visit: Yes Comment: Continue PPI (4) Diabetes Current Visit: Yes Comment: Continue SSI (5) Hypothyroidism Current Visit: Yes Comment: TSH WNL (6) DVT prophylaxis Current Visit: Yes Comment: Lovenox/Coumadin
[2016-09-21] MEDS ORDERED: Warfarin TAB(*) 4 MG PO ONE (17:00)
[2016-09-21] MEDS: Atorvastatin* 20 MG TAB PO SCH (17:24)
--- NOTE | 2016-09-21 18:49 | CONS ---
NEUROLOGY CONSULTATION: DATE OF CONSULT: 09/21/16 LOCATION: The patient is an inpatient on the short stay unit. REQUESTING PHYSICIAN: Dr. Darrell Dimas. REASON FOR CONSULT: Double vision and possible ptosis. HISTORY OF PRESENT ILLNESS: Seema Gunter is a 61-year-old woman with a history of hyperlipidemia, diabetes, GERD, and restless legs syndrome, who is in the hospital, status post an elective left total knee replacement which was performed 2 days ago. Yesterday, she reports the onset of double vision which she describes as horizontal but also says that the images were moving in her field of vision. She thinks this lasted about 15 minutes and was also accompanied by repetitive forceful eye closure and she describes this as being unable to keep her eyes open, but then demonstrates repetitive blinking. She denies any feeling of heaviness of her eyelids or drooping of her eyelids. She also has some discomfort in the eyes which was a burning discomfort and received some drops which seemed to have helped somewhat such that this morning she had an episode of again repetitive blinking with blurred, but not double vision. She did not test each eye independently to see if the double vision resolved with occlusion of one eye. She denies any associated dysphagia, dysarthria, or extremity weakness. She had a headache yesterday, but not since. She has no sensory changes. She has been up and moving about with physical therapy today and is hopeful for discharge tomorrow. She has a past history of goiter and says she was treated briefly with levothyroxine in the 80s , but has not taken it since. She has a mother with hypothyroidism. Otherwise , no family history of autoimmunity. She has been receiving narcotic pain medications for her recent surgery which is not something she normally takes at home. Neurology consultation is requested to evaluate the diplopia. PAST MEDICAL HISTORY: 1. Diabetes which has been diet controlled. 2. GERD. 3. RLS. 4. Asthma. 5. Hyperlipidemia. 6. Knee osteoarthritis. HOME MEDICATIONS: 1. Requip 2 tablets at bedtime. 2. Pantoprazole 40 mg twice daily. 3. Naproxen 2 tablets twice daily. 4. Multivitamin. 5. Singulair 10 mg at bedtime. 6. Lasix 20 mg as needed. 7. Vitamin D3 2000 units daily. 8. Atorvastatin 20 mg daily. 9. Albuterol as needed. 10. Tylenol as needed. ALLERGIES: ATROPINE causes severe tachycardia, ZOCOR causes muscle weakness, CODEINE causes vomiting and rash, SYMBICORT causes vomiting, ATENOLOL causes difficulty breathing, ADHESIVE TAPE and EKG PADS cause rash. FAMILY HISTORY: There is family history of heart disease, hypothyroidism, and diabetes. SOCIAL HISTORY: She does not smoke, drinks alcohol occasionally, denies illicit drug use. 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 She is . REVIEW OF SYSTEMS: There has been no fever recently. Otherwise, as per HPI. PHYSICAL EXAM: Vital Signs: Temperature 97.8, blood pressure 126/60 with a heart rate of 113, and oxygen saturation 99% on room air. On general examination, she is an obese, pleasant woman in no acute distress, sitting in the chair next to her bedside. Heart reveals a regular rate and rhythm. Lungs are clear to auscultation bilaterally. Extremity exam is notable for her left lower extremity with a cryo pack and edema in the lower extremities which is baseline for her. On neurologic examination, her mental status is normal. Her speech is fluent without dysarthria or aphasia. On cranial nerve testing, the pupils are equal, round, reactive from 3 to 2 mm bilaterally. There is no malalignment of the eyes. Versions are full without nystagmus or diplopia. Visual gillis are full to confrontation bilaterally. Facial sensation and musculature are full and symmetric. There is no lid lag and Aure's twitch is negative. The palate elevates symmetrically and the tongue is midline. Shoulder shrug is symmetric. Hearing is intact to finger rub. On motor examination, she has normal bulk and tone in the upper and lower extremities. Testing of the left lower extremity was limited to testing of ankle dorsiflexion and plantar flexion which was full, but the remaining extremities were full both proximally and distally. Sensation intact to light touch in the upper and lower extremities. Reflexes are 2+ throughout the upper and lower extremities. Downgoing toes. There is no ataxia on [id number] testing. She is not ambulated at this time. DIAGNOSTIC STUDIES/LAB DATA: CBC is notable for slightly low hematocrit of 31. BMP is remarkable only for an elevated glucose of 199. TSH was normal at 1.31. A noncontrast brain CT was obtained yesterday which was personally reviewed and was a normal study. IMPRESSION AND PLAN: Seema Gunter is a 61-year-old woman with a history of hyperlipidemia, who is admitted for an elective total knee and had a brief episode of diplopia yesterday associated with what sounds like blepharospasm rather than ptosis. This symptom seems to have improved somewhat with eye drops. Her neurologic exam today is unremarkable. However, she is also asymptomatic at this time. The differential would include unmasked myasthenia gravis as well as cerebrovascular event versus medication adverse reaction or a primary ocular issue. I think a cerebrovascular event is highly unlikely given there were no other associated brain stem signs such as slurring of speech, dizziness, or difficulty swallowing. It is possible that this could have been the first symptom of an unmasked myasthenia gravis, but at this point, she is asymptomatic and I do not see need for further testing here in the hospital. I have asked the patient to monitor for recurrence of symptoms and if she would have a return of her double vision, she should occlude one eye and determine whether the double vision resolved or not. If she continues to have diplopia with one eye occluded, then she should be seen by Ophthalmology for detection of a primary ocular process causing monocular diplopia. Otherwise, if she has recurrence of symptoms, she was encouraged to call my office and arrange for followup appointment at which point we could pursue further testing as appropriate. If she were to have recurrence of symptoms during the remainder of her hospital stay here, I would be happy to hear about that and reevaluate her at that time. Thank you for this consultation. [id number]/[facility] #: [id number] JO
[2016-09-21] MEDS: Montelukast Sodium TAB* 10 MG PO SCH (20:58)
[2016-09-21] MEDS: rOPINIRole TAB* 1 MG PO SCH (20:59)
[2016-09-22 07:12] LABS: Hematocrit 34 % (35-47); Hemoglobin 11.5 g/dl (12.0-16.0)
[2016-09-22] MEDS: Omeprazole CAP* 20 MG PO SCH (08:21)
[2016-09-22] MEDS: oxyCODONE/Acetamin 5/325 MG* TAB PO PRN ×2 (08:21→12:06)
[2016-09-22] MEDS: Insulin LISPRO* 1 UNITS UNIT SUBCUT SCH (08:21)
[2016-09-22] MEDS: Vitamin THERAPEUTIC TAB PO SCH (08:21)
[2016-09-22] MEDS: Docusate CAP* 100 MG PO SCH (08:21)
[2016-09-22 08:24] VITALS: BP 132/66
--- NOTE | 2016-09-22 09:03 | RAD ---
INDICATION: Left lower extremity pain, positive Homans sign. COMPARISON: There are no prior studies available for comparison. TECHNIQUE: Multiple real-time, color flow and Doppler tracings of the left lower extremity were obtained. FINDINGS: The common femoral, femoral, profunda femoral and popliteal veins all demonstrate normal compressibility, augmentation with compression and phasic response with respiration. The posterior tibial and peroneal veins demonstrate normal compressibility and augmentation with compression. IMPRESSION: NO EVIDENCE FOR DEEP VENOUS THROMBOSIS.
--- NOTE | 2016-09-22 10:32 | PN ---
Progress Note - Progress Note SOAP: Subjective: [61 year old female w/p L TKA. Patient denies any vision changes or difficulty moving her eyelids today. Denies SOB, pain well controlled. Noother compalitsn, eager for D/C. ] Objective: [General - Well appearing, NAD MSK- L knee incision with mild erythema around incision site, no drainage, warmth, minimall tender. Neg HOmans sign b/l LE's, equal ankle dorsiflexion/ plantarflexion b/l LE's. PT 2+ b/l. sensation intact b/l LE's ] Assessment: [POD #3 s/p L tka ] Plan: [- Continue coumadin for DVT prophyl, theraputic INR - Continue PT/ OT - Follow up with neurology within 2 weeks - D/C today - Follow up with Dr. Grewal within 2 weeks ] Vital Signs Temp 98.6 F 09/22/16 08:09 Pulse 93 09/22/16 08:09 Resp 16 09/22/16 08:34 BP 132/66 09/22/16 08:09 Pulse Ox 100 09/22/16 08:09 Intake & Output 09/21/16 09/22/16 09/22/16 18:59 06:59 18:59 Intake Total 760 400 120 Output Total 2300 1000 Balance -1540 -600 120 Intake: Oral 760 400 120 Output: Urine 2300 1000 Other: Estimated Void Medium # Voids 3 Laboratory Results - last 24 hr 09/21/16 09/21/16 09/22/16 11:48 15:59 06:39 Hgb 11.5 L Hct 34 L INR (Anticoag Therapy) POC Glucose (mg/dL) 175 H 159 H 09/22/16 09/22/16 06:39 07:47 Hgb Hct INR (Anticoag Therapy) 2.71 H POC Glucose (mg/dL) 155 H Active Medications Generic Name Dose Route Start Last Admin Trade Name Freq PRN Reason Stop Dose Admin Acetaminophen 650 mg 09/19/16 14:29 Tylenol Tab* PO Q4H PRN PAIN OR TEMPERATURE Albuterol 2 puff 09/19/16 14:34 Ventolin Hfa Inhaler* INH Q4H PRN SHORTNESS OF BREATH Atorvastatin Calcium 20 mg 09/19/16 18:00 09/21/16 17:24 Lipitor* PO 20 mg QPM AMY Administration Bisacodyl 10 mg 09/19/16 14:29 Dulcolax Supp* ME DAILY PRN constipation Dextrose 12.5 gm 09/19/16 14:46 D50w Syringe 50 Ml* IV PUSH .FOR FS < 60 - SS PRN FS < 60 Diphenhydramine HCl 12.5 mg 09/20/16 03:45 Benadryl Iv* IV Q6H PRN PRURITIS Docusate Sodium 100 mg 09/19/16 21:00 09/22/16 08:21 Colace Cap* PO 100 mg BID AMY Administration Enoxaparin Sodium 30 mg 09/20/16 12:00 09/21/16 11:45 Lovenox(*) SUBCUT 30 mg Q24H AMY Administration Lactated Ringer's 1,000 mls @ 100 mls/hr 09/19/16 15:00 09/20/16 03:37 Lactated Ringers 1000 Ml Bag* IV 100 mls/hr PER RATE AMY Administration Insulin Human Lispro 0 units 09/19/16 16:30 09/22/16 08:21 Humalog* SUBCUT 3 units AC AMY Administration Protocol Lactulose 30 ml 09/19/16 14:29 09/21/16 17:24 Lactulose* PO 30 ml Q6H PRN Administration constipation Magnesium Hydroxide 30 ml 09/19/16 14:29 09/21/16 08:33 Milk Of Magnesia Liq* PO 30 ml Q6H PRN Administration constipation Montelukast Sodium 10 mg 09/19/16 21:00 09/21/16 20:58 Singulair Tab* PO 10 mg BEDTIME AMY Administration Morphine Sulfate 2 mg 09/19/16 14:29 Morphine Inj (Syringe)* IV Q2H PRN PAIN Multivitamins 1 tab 09/20/16 09:00 09/22/16 08:21 Theragran Tab* PO 1 tab DAILY AMY Administration Omeprazole 20 mg 09/19/16 21:00 09/22/16 08:21 Prilosec Cap* PO 20 mg BID AMY Administration Ondansetron HCl 4 mg 09/20/16 03:45 Zofran Inj* IV Q6H PRN nausea Ondansetron HCl 4 mg 09/20/16 03:45 09/20/16 14:08 Zofran Tab* PO 4 mg Q6H PRN Administration NAUSEA Oxycodone HCl 10 mg 09/19/16 14:29 09/21/16 15:46 Roxycodone Tab* PO 10 mg Q4H PRN Administration SEVERE PAIN Oxycodone/Acetaminophen 1 tab 09/20/16 03:45 09/21/16 20:58 Percocet 5/325 Tab* PO 1 tab Q3H PRN Administration PAIN - MODERATE Oxycodone/Acetaminophen 2 tab 09/20/16 03:45 09/22/16 08:21 Percocet 5/325 Tab* PO 2 tab Q3H PRN Administration PAIN - MODERATE Pharmacy Profile Note 1 note 09/21/16 17:00 09/21/16 17:01 Coumadin Daily Reminder* FOLLOW UP 1 note 1700 AMY Administration Polyethylene Glycol/Electrolytes 17 gm 09/19/16 14:29 Miralax* PO DAILY PRN Constipation Polyvinyl Alcohol 1 drop 09/20/16 17:07 09/21/16 20:59 Polyvinyl Alcohol 1.4% Opth* BOTH EYES 1 drop Q2H PRN Administration DRY EYE Ropinirole HCl 1 mg 09/19/16 21:00 09/21/16 20:59 Requip Tab* PO 1 mg BEDTIME AMY Administration
[2016-09-22] MEDS: Enoxaparin(*) 30 MG/0.3 ML SYR SUBCUT SCH (12:07)
--- NOTE | 2016-09-24 01:51 | DS ---
DISCHARGE SUMMARY: DATE OF ADMISSION: 09/19/16 DATE OF DISCHARGE: 09/22/16 CHIEF COMPLAINT: 1. Osteoarthritis. 2. History of superficial phlebitis of the left leg. 3. Acid reflux. 4. Elevated cholesterol. 5. Restless leg syndrome. 6. Asthma. HOSPITAL COURSE: The patient was admitted to [facility] on 09/19/16 where she underwent a left total knee replacement, which was uncomplicated. She recovered in the surgical short-stay unit. On postoperative day 2, her Cary was removed, but she was voiding on her own without difficulty. She was having regular bowel motions. Her pain was controlled with p.o. Percocet and she has restarted on her home medications. On postoperative day 2, the patient noted to have some difficulty with vision and keeping her eye lids open. She was seen by Neurology. A brain CT scan was performed, which showed no acute findings. The patient's symptoms resolved spontaneously. She will follow with Neurology as an outpatient. She also experienced some left lower leg swelling and cramping for which a venous Doppler study was done, which did not show any DVT. The patient's DVT prophylaxis was managed with Lovenox and Coumadin until she reached the therapeutic INR. She advanced appropriately with physical therapy and occupational therapy. By postoperative day 3, she was orthopedically and medically stable to discharge to home with home services. PHYSICAL EXAMINATION: General: The patient is well appearing, calm, cooperative, in no acute distress. Vital Signs: Temperature of 98.6, pulse rate of 93, respirations of 18, oxygen saturation was 100% on room air, blood pressure 132/66. Examination of the left lower extremity shows surgical incision anterior portion of the knee which is benign without erythema, drainage, or visual signs of infection. A dry gauze was placed with Azeem wrap and the patient had active dorsiflexion and plantarflexion equally bilateral lower ankle with 2 + palpable posterior tibialis pulses. Sensation to light touch was intact. Negative Porter sign bilaterally. LABORATORY DATA: On the date of discharge, H and H of 11.5 and 34 and INR of 2.71. DISCHARGE MEDICATIONS: 1. Colace 100 mg p.o. b.i.d. 2. Coumadin 2 mg p.o. q. 5 p.m. daily per physician's instruction. 3. Tylenol 650 mg p.o. q.4 hours p.r.n. 4. Albuterol inhaler 2 puffs q.4 hours p.r.n. 5. Lipitor 20 mg p.o. q.p.m. 6. Vitamin D3 2000 units p.o. daily. 7. Lasix 20 mg p.o. daily. 8. Singulair 5 mg 1 tablet q.h.s. daily. 9. Multivitamin 1 tablet daily. 10. Pantoprazole 40 mg p.o. b.i.d. 11. Ropinirole 0.5 mg 2 tablets p.o. q.h.s. 12. Percocet 5/325 one to two tablets q.4 hours p.r.n. pain. CONDITION ON DISCHARGE: Stable. DISCHARGE INSTRUCTIONS: Mrs. Gunter is a very pleasant 61-year-old female postoperative day 3, status post left total knee replacement, which was complicated by blurred vision on postoperative day 2. She is orthopedically and medically stable to go home with home services. Her labs and vital signs are stable. She will restart her home medications. She will hold her Coumadin dose for tonight and take 2 mg on Sunday and Sunday and have her INR rechecked on Sunday. She will remain weightbearing as tolerated on her left lower extremities. She will have INR draws done every Sunday and with visiting home nurses. She will take Colace up to 3 times a day for constipation and will continue Percocet for pain management. She will follow up with Dr. Grewal in approximately 10 to 14 days for incision check and suture removal. She will follow up with Dr. Tolbert in approximately 2 weeks for followup for a neurological examination. She will go immediately to the emergency room should she develop chest pain or shortness of breath. Should she develop fever, increasing pain, redness or drainage around the incision site , she is to call the office immediately. CRISTINO INFANTE [id number]/[facility]PS #: [id number] MTDD
== END 2016-09-22 12:15 | disposition home health service (06) | DRG 302 ==
LOC: AA 09:02 → SSU 16:36
PROVIDERS: ADMIT Orthopaedic Surgery Adult Reconstructive Orthopaedic Surgery; ATTEND Orthopaedic Surgery Adult Reconstructive Orthopaedic Surgery
PROC: 0SRD0J9 Replacement of Left Knee Joint with Synthetic Substitute, Cemented, Open Approach (ICD-10-PCS; principal; 2016-09-19 12:00)
DX: M17.0 Bilateral primary osteoarthritis of knee (principal); Z68.41 Body mass index [BMI] 40.0-44.9, adult; K21.9 Gastro-esophageal reflux disease without esophagitis; E78.00 Pure hypercholesterolemia, unspecified; G25.81 Restless legs syndrome; J45.909 Unspecified asthma, uncomplicated; H53.2 Diplopia; E11.9 Type 2 diabetes mellitus without complications; E03.9 Hypothyroidism, unspecified; E78.5 Hyperlipidemia, unspecified; E66.9 Obesity, unspecified; I35.1 Nonrheumatic aortic (valve) insufficiency; G47.33 Obstructive sleep apnea (adult) (pediatric); M79.89 Other specified soft tissue disorders; R25.2 Cramp and spasm; H53.8 Other visual disturbances; G24.5 Blepharospasm; Z88.5 Allergy status to narcotic agent; Z88.8 Allergy status to other drugs, medicaments and biological substances; Z91.048 Other nonmedicinal substance allergy status; Z82.49 Family history of ischemic heart disease and other diseases of the circulatory system; Z83.3 Family history of diabetes mellitus; Z80.1 Family history of malignant neoplasm of trachea, bronchus and lung; Z83.511 Family history of glaucoma; Z83.42 Family history of familial hypercholesterolemia; Z83.49 Family history of other endocrine, nutritional and metabolic diseases; Z72.89 Other problems related to lifestyle; Z80.0 Family history of malignant neoplasm of digestive organs; Z79.01 Long term (current) use of anticoagulants
CPT/HCPCS: 36415; 62327; 70450; 80048; 83735; 84100; 84443; 85014; 85018; 85025; 85610; 88305; 88311; 94760; A9270-GY; C1776; J0690; J1100; J1200; J1650; J2250; J2405; J2704; J2795; J3010

== ENCOUNTER 2017-10-25 10:18 | Inpatient (IN) | payer BC ==
--- NOTE | 2017-10-18 19:11 | HP ---
HISTORY AND PHYSICAL: DATE OF ADMISSION: 10/25/17 PROVIDER: Dr. Adelaide Grewal.* (DICTATED BY CRISTINO SOTO) HISTORY OF PRESENT ILLNESS: Ms. Gunter is a 62-year-old female with 6/10 right knee pain. The pain is aching along her joint line. She can no longer ambulate more than one block without severe pain. She has difficulty with standing and stair climbing. She has failed conservative management with anti- inflammatories, physical therapy, steroid injections and Synvisc injections and would like to proceed forward with a right total knee arthroplasty. PAST MEDICAL HISTORY: 1. Phlebitis. 2. Prior DVT in calf after her first knee scope. She was placed on Coumadin with her prior knee replacement without any issue. 3. GERD. 4. Hypercholesterolemia. 5. Osteoarthritis. 6. Diabetes type 2. PAST SURGICAL HISTORY: 1. Left total knee arthroplasty. 2. Bilateral knee arthroscopies. 3. Bilateral carpal tunnel release. 4. Right shoulder surgery. 5. D and C. MEDICATIONS: 1. Pantoprazole sodium. 2. Ropinirole hydrochloric acid. 3. Lipitor. 4. Naproxen. 5. Restasis drops. 6. Montelukast sodium. 7. Metformin extended release 500 mg. ALLERGIES: 1. ZOCOR causes pain in all joints and massive muscle weakness. 2. ATROPINE causes severe tachycardia. 3. CODEINE causes hives, vomiting. The patient had no adverse reactions to hydrocodone. 4. SYMBICORT, vomiting and trouble breathing. 5. ADHESIVE TAPE causes small warts. FAMILY HISTORY: Heart disease, diabetes, and cancer. SOCIAL HISTORY: The patient lives with her . She works as a nurse. No tobacco, alcohol, or recreational drug use. Normally, an independent ambulator. REVIEW OF SYSTEMS: General: The patient denies any fevers, chills, or night sweats. No known anesthesia problems. HEENT: The patient denies headaches, lightheadedness, or syncopal episodes. Cardiothoracic: The patient denies any chest pain or heart palpitations. Pulmonary: The patient denies any shortness of breath with exertion, chronic cough, or COPD. GI: The patient denies any nausea, vomiting, diarrhea, or constipation. : The patient denies any nocturia, urinary frequency or urgency. MSK: The patient admits to right knee pain. The patient denies any chronic or intermittent back pain. Neuro: The patient denies any paresthesias, numbness, seizures, or stroke. Integument: The patient denies any abrasions, lesions, rashes, lumps, or open sores. PHYSICAL EXAMINATION GENERAL: The patient is alert and oriented x3 with appropriate mood and affect , appropriate dress and hygiene. HEENT: Normocephalic, atraumatic. Hearing and vision grossly intact. PULMONARY: Lungs are clear to auscultation bilaterally with no wheezes, rales, or rhonchi. CARDIO: Regular rate and rhythm. Normal S1 and S2. No appreciable S3 and S4. The patient does have a systolic murmur present. This has been addressed with her primary care practitioner and she has had this for the entirety of her life. MSK: Right lower extremity: Inspection of the right lower extremity reveals no erythema, no ecchymosis. Skin is warm, dry and intact. Range of motion is 5 to 90 degrees of flexion. She has positive medial and lateral joint line tenderness to palpation. Negative anterior and posterior drawer test. Negative varus and valgus stress testing. Negative Mary Jane's test. The patient is neurovascularly intact distally with a 2+ dorsalis pedis pulse. IMPRESSION: Right knee osteoarthritis. PLAN: The patient to the OR for a right total knee arthroplasty on 10/25/[address] Adelaide Grewal. The patient will return in 10 to 14 days postoperatively for suture removal and to follow up. A prescription for Percocet 5/325 has been sent to the pharmacy on record to be used for postoperative pain management. Warfarin has also been sent. The patient has a small systolic murmur that her primary care is aware of and is not mentioned as a contraindication to surgery at this point. CRISTINO SOTO [id number]/[facility] #: [id number] MTDD
[~2017-10-25 10:18] MED LIST changes: -Acetaminophen IV 1GM/100ML * 100 ML IVPB ONE; +Buffered Lidocaine 0.9% SYRIN* 5 ML/SYR SYRINGE INTRADERM ONE; -Buffered Lidocaine 1% SYR 3ML* 3 ML/SYR SYRINGE INTRADERM ONE; -Famotidine IV* 10 MG/ML 2 ML (20 mg) IV ONE; -Gabapentin CAP(*) 300 MG PO ONE; -Levalbuterol 0.63MG/3ML NEB INH ONE; -Metoclopramide TAB* 10 MG PO ONE; +Midazolam* 1 MG/ML 5 ML VIAL (5 MG) ONE; -celeCOXIB CAP* 200 MG PO ONE; +fentaNYL* 50 MCG/ML 2 ML VIAL (100 MCG VIAL) ONE
[2017-10-25] MEDS ORDERED: ceFAZolin 2 GM in 100 MLS NS (*) BAG IVPB ONE (10:24)
[2017-10-25] MEDS ORDERED: Buffered Lidocaine 0.9% SYRIN* 5 ML/SYR SYRINGE ONE (10:24)
--- OUTSIDE RECORDS SUMMARY | 2017-10-25 10:34 | XMS REPORT ---
:1955 External Reference #:[id number] Author Organization [facility] Address [address] [address] Phone [phone] Care Team Providers Name Role Phone Mesfin Long MD Primary Care Physician Unavailable Payers Type Date Identification Numbers Payment Provider Subscriber Commercial Effective: Policy Number: JAZMYN Moreau 2012 [id number] PayID: [id number] [address] [address] [place] [address] Medigap Part B Effective: Policy Number: [facility] Aundrea Garciaert Lyric 2011 [id number] Expires: 2012 PayID: [id number] [address] [address] [place] [address] Medigap Part B Expires: 2012 Policy Number: Ashley Moreau [id number] PayID: [id number] [address] [address] [place] [address] Problems Date Description Provider Status Onset: 08/09/2016 Localized, primary osteoarthritis Adelaide Grewal M.D. Active Onset: 11/22/2016 Arthroplasty of knee Adelaide Grewal M.D. 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 Use Denies alcohol use Smoking Patient has never smoked Exercise Type/Frequency Exercises regularly Allergies, Adverse Reactions, Alerts Date Description Reaction Status Severity Comments 12/26/2012 Zocor MUSCLE WEAKNESS, MALASIE active Severe 12/26/2012 Atropine SEVERE TACHYCARDIA, active Severe BREATHING DIFFICULTIES 12/26/2012 Codeine HIVES, VOMITING active Severe 12/26/2012 Symbicort (US) VOMITING active Moderate to Severe 09/25/2013 Adhesive Tape active Medications Medication Date Status Form Strength Qnty SIG Indications Ordering Provider Percocet 08/24/ Active Tablets 5-325mg 90tabs 1-2 tabs by M25.461 2016 mouth q8 as Uri, needed pain M.D. Pantoprazole / Active Unknown Sodium 0000 Ropinirole HCL / Active Unknown 0000 Lipitor / Active Unknown 0000 Naproxen / Active Unknown 0000 Restasis / Active Unknown 0000 Montelukast / Active Tablets 10mg Silcoff, Sodium 0000 MD Mesfin Metformin HCL / Active Tablets ER 500mg 2 tabs daily Silcoff, ER 0000 24HR MD Mesfin Comp Stockings 11/22/ Hx 1units wear when Z96.652 Adelaide 2016 - oob during Uri, 02/15/ day ble, off M.D. 2017 at night Colace 09/16/ Hx Capsules 100mg 60caps one tablet Adelaide2016 - twice daily Uri, 10/04/ post-operati M.D. 2017 vely Percocet 09/16/ Hx Tablets 5-325mg 90tabs one to two 2016 - tablet every Uri, 02/15/ 4-6 hours as M.D. 2016 needed for pain Coumadin 09/16/ Hx Tablets 2mg 60tabs 1-3 tablets Adelaide2016 - orally as Uri, 10/10/ prescribed M.D. 2017 post-operati vely at 5pm No Active 09/25/ Hx Unknown Medications 2013 - 2013 Valium 09/30/ Hx Tablets 5mg 2tabs 1 tablet 1 Matt 2012 - hour prior Young, 09/25/ to january M.D. 2013 take a second if needed. Glucosamine / Hx Unknown Chondroitin 0000 - 2015 Furosemide // Hx Unknown 0000 - 2015 Lidoderm / Hx Unknown - 2015 Antibiotic For / Hx Unknown Asthmatic 0000 - Bronchitis 2016 Medications Administered in Office Medication Date Status Form Strength Qnty SIG Indications Ordering Provider Depomedrol Administered Injection Adelaide 40MG Lovely Grewal M.D. Synvisc Or Administered Injection Adelaide Synvisc-One Lovely Grewal M.D. Injection 1 MG Synvisc Or Administered Injection Adelaide Synvisc-Thai Grewal M.D. Injection 1 MG Synvisc Or Administered Injection Adelaide Synvisc-One Lovely Grewal M.D. Injection 1 MG Depomedrol Administered Injection Adelaide 40MG Lovely Grewal M.D. Depomedrol Administered Injection Adelaide 40MG Lovely Grewal M.D. Vital Signs Date Vital Result Comment 10/15/2017 Height 61 inches 5'1" Weight 210.00 lb Heart Rate 69 /min BP Systolic 138 mmHg BP Diastolic 74 mmHg Respiratory Rate 20 /min Body Temperature 98.3 F Pain Level 8 BMI (Body Mass Index) 39.7 kg/m2 08/24/2017 Height 61 inches 5'1" Weight 203.00 lb Per pt BP Systolic Sitting 120 mmHg Lue, lg cuff BP Diastolic Sitting 70 mmHg Lue, lg cuff Respiratory Rate 16 /min Body Temperature 98.3 F tympanic Pain Level 6 right knee BMI (Body Mass Index) 38.4 kg/m2 06/22/2017 Height 61 inches 5'1" Weight 205.00 lb Heart Rate 88 /min BP Systolic 112 mmHg BP Diastolic 63 mmHg Body Temperature 97.9 F Pain Level 3 BMI (Body Mass Index) 38.7 kg/m2 06/15/2017 Height 61 inches 5'1" Weight 205.00 lb Heart Rate 73 /min BP Systolic 110 mmHg BP Diastolic 71 mmHg Pain Level 5 BMI (Body Mass Index) 38.7 kg/m2 06/08/2017 Height 61 inches 5'1" Weight 205.00 lb Heart Rate 61 /min BP Systolic 139 mmHg BP Diastolic 83 mmHg Pain Level 9 BMI (Body Mass Index) 38.7 kg/m2 05/25/2017 Height 61 inches 5'1" Weight 202.00 lb Heart Rate 73 /min BP Systolic 119 mmHg BP Diastolic 69 mmHg BMI (Body Mass Index) 38.2 kg/m2 02/16/2017 Height 61 inches 5'1" Weight 216.00 lb Heart Rate 68 /min BP Systolic 132 mmHg BP Diastolic 74 mmHg Body Temperature 99.0 F BMI (Body Mass Index) 40.8 kg/m2 12/15/2016 Height 61 inches 5'1" Weight 220.00 lb Heart Rate 95 /min BP Systolic 130 mmHg BP Diastolic 82 mmHg Body Temperature 98.8 F Pain Level 3 BMI (Body Mass Index) 41.6 kg/m2 11/22/2016 Height 61 inches 5'1" Weight 220.00 lb Heart Rate 132 /min BP Systolic 135 mmHg BP Diastolic 85 mmHg Body Temperature 98.5 F Pain Level 3 BMI (Body Mass Index) 41.6 kg/m2 10/20/2016 Height 60.5 inches 5'0.50" Weight 222.00 lb Heart Rate 88 /min BP Systolic 142 mmHg BP Diastolic 80 mmHg Respiratory Rate 16 /min Body Temperature 98.8 F Pain Level 5 BMI (Body Mass Index) 42.6 kg/m2 10/02/2016 Height 60.5 inches 5'0.50" Weight 222.00 lb Body Temperature 99.2 F Pain Level 4 BMI (Body Mass Index) 42.6 kg/m2 08/09/2016 Height 60.5 inches 5'0.50" Weight 222.00 lb Heart Rate 60 /min BP Systolic Sitting 152 mmHg BP Diastolic Sitting 84 mmHg Respiratory Rate 16 /min Pain Level 7 BMI (Body Mass Index) 42.6 kg/m2 Results Test Date Test Result H/L Range Note Inr/Protime 10/12/2017 Inr 0.90 0.77-1.02 Laboratory test 10/12/2017 Partial Thrombo 37.7 seconds High 26.0-36.3 finding Time PTT Urinalysis Profile 10/12/2017 Urine Color Yellow Urine Appearance Clear Urine Specific [place] 1.012 1.010-1.030 Urine pH 6.0 5-9 Urine Urobilinogen Negative Negative Urine Ketones Negative Negative Urine Protein Negative Negative Urine Leukocytes Negative Negative Urine Blood Negative Negative Urine Nitrite Negative Negative Urine Bilirubin Negative Negative Urine Glucose Negative Negative CBC Auto Diff 10/12/2017 White Blood Count 6.1 10^3/uL 3.5-10.8 Red Blood Count 4.59 10^6/uL 4.0-5.4 Hemoglobin 13.4 g/dL 12.0-16.0 Hematocrit 40 % 35-47 Mean Corpuscular Volume 87 fL 80-97 Mean Corpuscular Hemoglobin 29 pg 27-31 Mean Corpuscular HGB Conc 34 g/dL 31-36 Red Cell Distribution Width 14 % 10.5-15 Platelet Count 330 10^3/uL 150-450 Mean Platelet Volume 8 um3 7.4-10.4 Abs Neutrophils 4.0 10^3/uL 1.5-7.7 Abs Lymphocytes 1.7 10^3/uL 1.0-4.8 Abs Monocytes 0.3 10^3/uL 0-0.8 Abs Eosinophils 0.1 10^3/uL 0-0.6 Abs Basophils 0 10^3/uL 0-0.2 Abs Nucleated RBC 0 10^3/uL Granulocyte % 65.6 % 38-83 Lymphocyte % 27.3 % 25-47 Monocyte % 5.4 % 1-9 Eosinophil % 1.2 % 0-6 Basophil % 0.5 % 0-2 Nucleated Red Blood Cells % 0 Comp Metabolic Panel 10/12/2017 Sodium 139 mmol/L 133-145 Potassium 4.4 mmol/L 3.5-5.0 Chloride 104 mmol/L 101-111 Co2 Carbon Dioxide 29 mmol/L 22-32 Anion Gap 6 mmol/L 2-11 Glucose 128 mg/dL High 70-100 Blood Urea Nitrogen 17 mg/dL 6-24 Creatinine 0.83 mg/dL 0.51-0.95 BUN/Creatinine Ratio 20.5 High 8-20 Calcium 9.6 mg/dL 8.6-10.3 Total Protein 6.7 g/dL 6.4-8.9 Albumin 4.3 g/dL 3.2-5.2 Globulin 2.4 g/dL 2-4 Albumin/Globulin Ratio 1.8 1-3 Total Bilirubin 0.40 mg/dL 0.2-1.0 Alkaline Phosphatase 84 U/L 34-104 Alt 15 U/L 7-52 Ast 14 U/L 13-39 Egfr Non- 69.4 >60 Egfr 89.3 >60 1 Type & Screen 10/12/2017 Patient Blood Type O Positive Antibody Screen NEGATIVE Urine Culture And Sensitivities 10/12/2017 Urine Culture SEE RESULT BELOW 2 Urine Culture And Sensitivities 09/15/2016 Urine Culture SEE RESULT BELOW 3 Type & Screen 09/15/2016 Patient Blood Type O Positive Antibody Screen NEGATIVE Urinalysis Profile 09/15/2016 Urine Color Straw Urine Appearance Clear Urine Specific [place] 1.005 Low 1.010-1.030 Urine pH 6.0 5-9 Urine Urobilinogen Negative Negative Urine Ketones Negative Negative Urine Protein Negative Negative Urine Leukocytes Negative Negative Urine Blood Negative Negative Urine Nitrite Negative Negative Urine Bilirubin Negative Negative Urine Glucose Negative Negative CBC Auto Diff 09/06/2016 White Blood Count 6.3 10^3/uL 3.5-10.8 Red Blood Count 4.45 10^6/uL 4.0-5.4 Hemoglobin 13.1 g/dL 12.0-16.0 Hematocrit 39 % 35-47 Mean Corpuscular Volume 88 fL 80-97 Mean Corpuscular Hemoglobin 29 pg 27-31 Mean Corpuscular HGB Conc 33 g/dL 31-36 Red Cell Distribution Width 14 % 10.5-15 Platelet Count 270 10^3/uL 150-450 Mean Platelet Volume 9 um3 7.4-10.4 Abs Neutrophils 4.0 10^3/uL 1.5-7.7 Abs Lymphocytes 1.8 10^3/uL 1.0-4.8 Abs Monocytes 0.4 10^3/uL 0-0.8 Abs Eosinophils 0.1 10^3/uL 0-0.6 Abs Basophils 0 10^3/uL 0-0.2 Abs Nucleated RBC 0 10^3/uL Granulocyte % 63.0 % 38-83 Lymphocyte % 29.2 % 25-47 Monocyte % 5.9 % 1-9 Eosinophil % 1.4 % 0-6 Basophil % 0.5 % 0-2 Nucleated Red Blood Cells % 0 Inr/Protime 09/06/2016 Inr 0.98 0.89-1.11 Basic Metabolic Panel 09/06/2016 Sodium 136 mmol/L 133-145 Potassium 4.2 mmol/L 3.5-5.0 Chloride 106 mmol/L 101-111 Co2 Carbon Dioxide 30 mmol/L 22-32 Anion Gap 0 mmol/L Low 2-11 Glucose 129 mg/dL High 70-100 Blood Urea Nitrogen 19 mg/dL 6-24 Creatinine 0.92 mg/dL 0.51-0.95 BUN/Creatinine Ratio 20.7 High 8-20 Calcium 9.6 mg/dL 8.6-10.3 Egfr Non- 61.9 >60 Egfr 79.5 >60 4 Surgical Pathology 01/08/2013 S RUN DATE: 01/09/ <SEE 5 NOTE> CBC Auto Diff 12/19/2012 White Blood Count 5.2 10^3/uL 4.8-10.8 Red Blood Count 4.42 10^6/uL 4.0-5.4 Hemoglobin 13.4 g/dL 12.0-16.0 Hematocrit 40 % 35-47 Mean Corpuscular Volume 89 fL 80-97 Mean Corpuscular Hemoglobin 30 pg 27-31 Mean Corpuscular HGB Conc 34 g/dL 31-36 Red Cell Distribution Width 14 % 10.5-15 Platelet Count 246 10^3/uL 150-450 Mean Platelet Volume 9 um3 7.4-10.4 Abs Neutrophils 2.9 10^3/uL 1.5-7.7 Abs Lymphocytes 1.8 10^3/uL 1.0-4.8 Abs Monocytes 0.3 10^3/uL 0-0.8 Abs Eosinophils 0.1 10^3/uL 0-0.6 Abs Basophils 0 10^3/uL 0-0.2 Abs Nucleated RBC 0 10^3/uL Granulocyte % 56.7 % 38-83 Lymphocyte % 35.2 % 25-47 Monocyte % 5.8 % 1-9 Eosinophil % 1.7 % 0-6 Basophil % 0.6 % 0-2 Nucleated Red Blood Cells % 0.1 Basic Metabolic Panel 12/19/2012 Sodium 140 mmol/L 133-145 Potassium 3.9 mmol/L 3.5-5.0 Chloride 106 mmol/L 101-111 Co2 Carbon Dioxide 29.0 mmol/L 22-32 Anion Gap 5.0 mmol/L 2-11 Glucose 92 mg/dL 70-100 Blood Urea Nitrogen 18 mg/dL 6-24 Creatinine 1.10 mg/dL 0.50-1.40 BUN/Creatinine Ratio 16.4 8-20 Calcium 9.3 mg/dL 8.1-9.9 Egfr Non- 51.0 >60 Egfr 65.6 >60 6 Lipid Profile (Trig/Chol/HDL) 12/19/2012 Triglycerides 94 mg/dL 40-200 Cholesterol 240 mg/dL High Less than 200 HDL Cholesterol 48 mg/dL 40-60 7 Cholesterol/HDL Ratio 5.0 Average High 1-4.44 LDL Cholesterol 173.2 mg/dL High Less Than 100 8 Laboratory test finding 12/19/2012 Alt 21 U/L 14-54 1 Because ethnic data is not always readily available, this report includes an eGFR for both -Americans and non- Americans. The National Kidney Disease Education Program (NKDEP) does not endorse the use of the MDRD equation for patients that are not between the ages of 18 and 70, are , have extremes of body size, muscle mass, or nutritional status, or are non- or non-. According to the National Kidney Foundation, irrespective of diagnosis, the stage of the disease is based on the level of kidney function: Stage Description GFR(mL/min/1.73 m(2)) 1 Kidney damage with normal or decreased GFR 90 2 Kidney damage with mild decrease in GFR 60-89 3 Moderate decrease in GFR 30-59 4 Severe decrease in GFR 15-29 5 Kidney failure <15 (or dialysis) 2 SEE RESULT BELOW Name: SEEMA MOREAU : [address]: Adelaide Grewal MD Acct: [id number] Unit: [id number] AGE: 62 Location: [facility] Re10/12/17 SEX: F Status: REG REF SPEC: [id number] ZAIN: 10/12/17-[address] [facility] [address]: Adelaide Grewal MD REQ: [id number] RECD: 10/12/171145 STATUS: COMP [facility] DR: Mesfin TAMAYO Audra Holland DPM _ SOURCE: URINE SPDESC: ORDERED: Urine Culture QUERIES: Urine Source: Clean Catch Procedure Result Reported Site Urine Culture Final 10/13/17- 1313 ML No growth of clinically significant organisms * ML - MAIN LAB ([facility]) . END OF REPORT * ML=Testing performed at Main Lab DEPARTMENT OF PATHOLOGY, [address] [place] [address] Naveen Bailey M.D. Director [facility] # [id number] 3 SEE RESULT BELOW Name: SEEMA MOREAU : [address]: Adelaide Grewal MD Acct: [id number] Unit: [id number] AGE: 61 Location: PAT Re09/15/16 SEX: F Status: REG REF SPEC: [id number] ZAIN: 09/15/16-[address] [facility] [address]: Adelaide Grewal MD REQ: [id number] RECD: 09/15/16 STATUS: COMP _ SOURCE: URINE SPDESC: ORDERED: Urine Culture QUERIES: Urine Source: Clean Catch Procedure Result Reported Site Urine Culture Final 09/16/16- 1201 ML No growth of clinically significant organisms * ML - MAIN LAB ([facility]) . END OF REPORT * ML=Testing performed at Main Lab DEPARTMENT OF PATHOLOGY, [facility] [employer] [place], [place] [address] Naveen Bailey M.D. Director [facility] # [id number] 4 Because ethnic data is not always readily available, this report includes an eGFR for both -Americans and non- Americans. The National Kidney Disease Education Program (NKDEP) does not endorse the use of the MDRD equation for patients that are not between the ages of 18 and 70, are , have extremes of body size, muscle mass, or nutritional status, or are non- or non-. According to the National Kidney Foundation, irrespective of diagnosis, the stage of the disease is based on the level of kidney function: Stage Description GFR(mL/min/1.73 m(2)) 1 Kidney damage with normal or decreased GFR 90 2 Kidney damage with mild decrease in GFR 60-89 3 Moderate decrease in GFR 30-59 4 Severe decrease in GFR 15-29 5 Kidney failure <15 (or dialysis) 5 RUN DATE: 01/09/13 [facility] LAB LIVE PAGE 1 RUN TIME: [address] [facility] [employer] [place], [place] [address] Specimen Inquiry Name: SEEMA MOREAU : [address]: Matt Johnson MD Acct: [id number] Unit: [id number] AGE: 57 Location: [place] Re01/08/13 SEX: F [place] [facility] [place]: [id number] ZAIN: 01/08/13- SUBM DR: Matt Johnson MD REQ: [id number] RECD: 01/08/131208 STATUS: SOUT _ ORDERED: LEVEL III FINAL DIAGNOSIS Shoulder, right, shavings: Fragments of synovium with fibrosis, fibrocartilage with myxoid degeneration , and articular cartilage with degenerative changes. PRE-OPERATIVE DIAGNOSIS Right shoulder labral tear. GROSS DESCRIPTION The specimen is received in formalin labeled Seema Moreau, Right Shoulder and consists of a 3.5 x 2.0 x 1.0 cm. aggregate of yellow and white tissue fragments. Black Leather Buffer sections, one cassette. Signed (signature on file) Naveen Bailey MD 1234 END OF REPORT * ML=Testing performed at Main Lab DEPARTMENT OF PATHOLOGY, [address] [place] [address] Naveen Bailey M.D. Director [facility] Permit #[id number] 6 Because ethnic data is not always readily available, this report includes an eGFR for both -Americans and non- Americans. The National Kidney Disease Education Program (NKDEP) does not endorse the use of the MDRD equation for patients that are not between the ages of 18 and 70, are , have extremes of body size, muscle mass, or nutritional status, or are non- or non-. According to the National Kidney Foundation, irrespective of diagnosis, the stage of the disease is based on the level of kidney function: Stage Description GFR(mL/min/1.73 m(2)) 1 Kidney damage with normal or decreased GFR 90 2 Kidney damage with mild decrease in GFR 60-89 3 Moderate decrease in GFR 30-59 4 Severe decrease in GFR 15-29 5 Kidney failure <15 (or dialysis) 7 HDL Interpretation: Undesirable: High Risk: Less than 40 MG/DL Desirable: Low Risk: Greater than 60 MG/DL 8 LDL Interpretation: Low Risk Optimal Level: LDL Less than 100 MG/DL Near or Above Optimal: LDL 100-129 MG/DL Borderline High Risk: LDL 130-159 MG/DL High Risk: LDL 160-189 MG/DL Very High Risk: LDL Greater than 189 MG/DL Procedures Date CPT Code Description Status 08/24/201746081 Inject/Drain Joint/Bursa Major Completed 06/22/201719741 Inject/Drain Joint/Bursa Major Completed 06/15/2017 34290 Inject/Drain Joint/Bursa Major Completed 06/08/2017 16256 Inject/Drain Joint/Bursa Major Completed 02/16/2017 56279 Inject/Drain Joint/Bursa Major Completed 10/02/2016 31425 Inject/Drain Joint/Bursa Major Completed 09/19/2016 86012 TKR Total Knee Replacement Completed 09/19/2016 30323 TKR Total Knee Replacement Completed 01/08/2013 37926 Arthroscopy,Shoulder,Surg,Capsulorrhaphy Completed 01/08/2013 31764 Arthroscopy Shoulder Debridement Limited Completed 01/08/2013 70017 Arthroscopy Shoulder Debridement Limited Completed 01/08/2013 94357 Arthroscopy,Shoulder Decompression Of Subacromial Space Completed W/Acromio 01/08/2013 23107 Arthroscopy,Shoulder Decompression Of Subacromial Space Completed W/Acromio 01/08/2013 15911 Arthroscopy,Unlisted Procedure Completed 01/08/2013 96083 Arthroscopy,Unlisted Procedure Completed 09/25/2012 61439 Polysomnography Sleep Staging 4+ Parameters W/Cpap Completed 08/21/2012 45539 Polysomnography Sleep Staging 4+ Parameters Completed Encounters Type Date Location Provider CPT E/M Dx Office Visit 08/24/2017 [facility] Grewal M.D. 03456 M25.461 9:30a [facility] M17.11 M25.561 Z96.652 Office Visit 05/25/2017 9:30a [facility] Grewal M.D. 07868 M25.561 [facility] M25.461 M17.11 Z96.652 Office Visit 02/16/2017 9:30a [facility] Adelaide Grewal M.D. 60501 M25.561 [facility] M25.461 M17.11 Office Visit 09/21/2016 4:27p [facility] [address] H53.2 Office Visit 09/21/2016 3:13p [facility], Darrell Dimas 16449 E11.8 Hospitalists Z96.652 H53.2 I10 Office Visit 09/20/2016 3:12p [facility], [place] [address] E11.8 Hospitalists H53.2 I10 Z96.652 Office Visit 09/19/2016 3:11p [facility], [place], 79162 E78.5 Hospitalists N.P. I10 E11.8 Z96.652 Office Visit 08/09/2016 9:30a [facility] Adelaide Grewal M.D. 27070 M25.562 [facility] M25.561 M25.462 M25.461 M17.0 Office Visit 09/25/2013 3:00p [facility] Matt Johnson M.D. 13402 726.10 [facility] Office Visit 07/25/2013 10:15a [facility] Matt Johnson M.D. 15203 726.10 C.[facility]. 726.12 Office Visit 04/25/2013 9:30a [facility] JASPAL Allen 73948 726.10 [facility] Office Visit 12/26/2012 12:30p [facility] [place], 39111 427.81 [facility] Mele V72.81 Office Visit 10/25/2012 11:45a [facility] Matt Johnosn M.D. 07347 726.19 C.M.Gasper 726.2 726.10 Office Visit 09/20/2012 10:00a [facility] Socrates Martinez 00407 726.0 Of [facility].M.AAttila Ortiz Office Visit 09/04/2012 10:38a Pio Suero, 00604 327.23 Disorder Franklin Mele 327.51 Office Visit 08/02/2012 11:26a [place], 00772 786.09 Disorder Franklin Mele 333.94 794.2 Office Visit 07/18/2012 3:45p [facility] Matt Johnson M.D. 43398 726.0 [facility] Office Visit 05/14/2012 3:00p [facility] Matt Johnson M.D. 69279 726.0 [facility] Plan of Care Future Appointment(s):10/25/2017 1:30 pm - Darren Jackson PA-C at [facility]10/25/2017 1:30 pm - CRISTINO Aguilar at [facility]11/02/2017 9:45 am - Adelaide Grewal M.D. at [facility]10/25/2017 1:30 pm - Adelaide Grewal M.D. at [facility]
[2017-10-25] MEDS ORDERED: Morphine PF AMP (0.5MG/ML)* 5 MG/10 ML AMP ONE (13:11)
[2017-10-25] MEDS ORDERED: Propofol* 10 MG/ML 20 ML BTL IV PUSH ONE ×2 (13:33→15:34)
[2017-10-25] MEDS ORDERED: Bupivacaine 0.5% SDV PF* 10-30ML VIAL ONE (13:33)
[2017-10-25] MEDS ORDERED: EPHEDrine (Pressors)* 50 MG/ML VIAL ONE ×2 (13:38→14:17)
[2017-10-25] MEDS ORDERED: Magnesium Hydroxide LIQ* 30 ML UDC PO PRN (14:03)
[2017-10-25] MEDS ORDERED: Acetaminophen TAB* 325 MG PO PRN ×2 (14:03→14:14)
[2017-10-25] MEDS ORDERED: Albuterol HFA INHALER* 8 gm MDI INH PRN (14:14)
[2017-10-25] MEDS ORDERED: Furosemide TAB* 20 MG PO PRN (14:14)
[2017-10-25] MEDS ORDERED: Albuterol 2.5 MG/3 ML NEB.SOL* (0.083%) INH PRN (14:14)
[2017-10-25] MEDS ORDERED: Nalbuphine* 20 MG/ML 1 ML VIAL IV PRN ×2 (14:18)
[2017-10-25] MEDS ORDERED: Naloxone* 0.4 MG/ML 1 ML VIAL IV PRN ×2 (14:18)
[2017-10-25] MEDS ORDERED: Ondansetron INJ* 2 MG/ML VIAL IV PRN ×2 (14:18)
[2017-10-25] MEDS ORDERED: HYDROmorphone INJ* 1 MG/ML CARPUJECT SYRINGE IV PRN (14:18)
[2017-10-25] MEDS ORDERED: HYDROcodone/ACETAMIN 5-325 MG* 1 TAB PO PRN ×2 (14:18)
[2017-10-25] MEDS ORDERED: Metoclopramide IV* 5 MG/ML 2 ML VIAL IV PRN ×2 (14:18)
[2017-10-25] MEDS ORDERED: fentaNYL* 50 MCG/ML 2 ML VIAL (100 MCG VIAL) IV PRN (14:18)
[2017-10-25] MEDS ORDERED: PROCHLORPERAZINE INJ 5 MG/ML 2 ML VIAL IV PRN ×2 (14:18)
[2017-10-25] MEDS ORDERED: Midazolam* 1 MG/ML 2 ML VIAL (2 MG) ONE (14:35)
[2017-10-25] MEDS ORDERED: Metoprolol Tartrate IV* 1 MG/ML 5 ML VIAL ONE (14:38)
[2017-10-25] MEDS ORDERED: Dextrose 50% Syringe 50 ML* 25 GM/50 ML SYRINGE IV PUSH PRN (16:30)
--- NOTE | 2017-10-25 16:56 | RAD ---
INDICATION: Postoperative right total knee replacement COMPARISON: August 22, 2017 TECHNIQUE: AP and lateral views were obtained. FINDINGS: There is right knee arthroplasty. Both tibial and femoral components appear well seated. As a surgical drain in place. IMPRESSION: POSTOPERATIVE RIGHT TOTAL KNEE REPLACEMENT
[2017-10-25] MEDS ORDERED: Warfarin TAB(*) 6 MG PO ONE ×2 (17:00→22:00)
[2017-10-25] MEDS: Insulin LISPRO* 1 UNITS UNIT SUBCUT SCH (18:38)
[2017-10-25] MEDS ORDERED: metFORMIN* 500 MG TAB PO SCH (21:00)
[2017-10-25] MEDS: Magnesium Hydroxide LIQ* 30 ML UDC PO SCH (21:42)
[2017-10-25] MEDS: Omeprazole CAP* 20 MG PO SCH (22:02)
[2017-10-25] MEDS: Atorvastatin* 20 MG TAB PO SCH (22:02)
[2017-10-25] MEDS: Cholecalciferol TAB* 1000 UNITS PO SCH (22:03)
[2017-10-25] MEDS: rOPINIRole TAB* 1 MG PO SCH (22:03)
[2017-10-25] MEDS: Montelukast Sodium TAB* 10 MG PO SCH (22:05)
[2017-10-25] MEDS: ceFAZolin 1 GM in Dextrose (*) 1 GM/50 ML BAG IVPB SCH (22:08)
[2017-10-25] MEDS: Enoxaparin(*) 40 MG/0.4 ML SYR SUBCUT SCH (22:53)
--- NOTE | 2017-10-25 23:29 | CONS ---
CC: Dr. Long; Dr. Grewal * CONSULTATION REPORT: DATE OF CONSULT: 10/25/17 PRIMARY CARE PROVIDER: Dr. Long. REQUESTING PHYSICIAN IN CONSULT: Dr. Adelaide Grewal. ATTENDING PHYSICIAN WHILE IN THE HOSPITAL: Paramjit Mead MD (report dictated by Brett Kan NP). REASON FOR CONSULT: Medical management of comorbid medical conditions. HISTORY OF PRESENT ILLNESS: Ms. Gunter is a 62-year-old female patient presented to Dr. Grewal's service today for an elective total knee replacement on the right side. She had failed conservative therapy and it was felt that she would benefit from a total knee and the patient elected to undergo that today. She does carry a history of diabetes. She also carries a history of ANALY ; history of DVT after one of her knee arthroscopies; history of GERD; hyperlipidemia; arthritis; hypothyroidism, currently on medications; and a history of asthma. She was evaluated in the PACU. She says she is feeling well and she denies having any chest pain or shortness of breath. She denies any abdominal discomfort. She says she is not feeling nauseated. She says just she feels a little dizzy, feels tired. She says that she is not having any pain in her leg. She did undergo a spinal and says that she is slowly getting sensation back, but says that her pain is well controlled and she denies having any vomiting. She is going to be evaluated in the PACU. Because of her medical complexity, we were asked to evaluate in consult. PAST MEDICAL HISTORY: Significant for: 1. History of DVT after knee arthroscopy. 2. GERD. 3. Hyperlipidemia. 4. Arthritis. 5. Diabetes. 6. Hypothyroidism. 7. ANALY. 8. Asthma. PAST SURGICAL HISTORY: She has had a left total knee replacement. Now, she just had a right total knee replacement. She has had bilateral knee arthroscopies. She has had shoulder surgery and she has also had a carpal tunnel repair. HOME MEDICATIONS: Include: 1. Lipitor 20 mg p.o. daily. 2. Requip 2 to 3 tabs p.o. at bedtime. 3. Protonix 40 mg p.o. b.i.d. 4. Multivitamin 1 tab daily. 5. Singulair 10 mg p.o. at bedtime. 6. Metformin 2 tablets p.o. at bedtime. 7. Vitamin D3 2000 units p.o. daily. 8. Percocet 1 to 2 tabs every 4 hours as needed. 9. Lasix 20 mg daily as needed. 10. Ventolin 2 puffs inhaled every 4 hours as needed. 11. Ventolin 1 neb every 4 hours as needed. 12. Tylenol 650 mg every 4 hours as needed. ALLERGIES TO MEDICATIONS: Include TAPE, ATENOLOL, ATROPINE, BUDESONIDE, CODEINE , FORMOTEROL, SYMBICORT, ZOCOR, and EKG PADS. FAMILY HISTORY: Her mother had lung cancer. Father had colon cancer. SOCIAL HISTORY: She does not smoke. Does not drink. She is a nurse. Surrogate decision maker is her . REVIEW OF SYSTEMS: There is no documented fever. She denied having any significant weight change. There was no double vision. She denies having any ear discharge. There is no rhinorrhea. There is no sore throat. No thyroid enlargement. She denies having any chest pain. There is no orthopnea. There is no nocturnal dyspnea. She denies having any abdominal pain. No nausea, no vomiting. No dysuria, no frequency. No seizure. No loss of consciousness. No pruritus and no skin ulceration. Review of 14 systems completed, all others negative. PHYSICAL EXAM: Vital Signs: Blood pressure 105/56, pulse 88, respirations were 14, O2 sat 98% on 2 L, temperature 97.3. General: At this time, Ms. Gunter is a 62-year-old female patient. She is sitting in the PACU bed. She does not appear to be in any acute distress. She is awake and alert. She is appropriate. HEENT: Head atraumatic, normocephalic. Eyes: Sclerae are anicteric, not pale. Pupils equal, reactive to light. Neck: Supple. Throat: Oral mucosa appears to be moist. No oropharyngeal erythema. Heart: Sounds S1, S2. Regular rate and rhythm. No murmurs, rubs, or gallops. Lungs: Clear to auscultation. No wheezes, rales, or rhonchi. Abdomen: Soft, flat, nontender. Bowel sounds are hypoactive. Extremities: Pulses were 2+ throughout. She is moving her upper extremities with 5/5 strength. Her lower extremities, she has limited range of motion as she did have a spinal, but distal CSM checks were intact. Neurologically, she is again drowsy, but she awakens to her name. She is alert, she is oriented, she is appropriate. No gross focal deficits. Skin: Intact with the exception she has an incision to the lower extremity, which is covered with an Azeem dressing with a Hemovac drain intact. DIAGNOSTIC STUDIES/LAB DATA: Preop, WBC 6.1, RBC of 4.59, hemoglobin 15.4, hematocrit of 40, and platelet count of 330. INR was 0.90. Sodium 139, potassium 4.4, chloride 104, bicarb 29, BUN 17, creatinine 0.83, glucose 120. Her A1c was 6.7. Urine preop was negative. She had an EKG outpatient, normal sinus rhythm, rate of 71. No ST elevation or T-wave inversions. Old medical records were reviewed. She did have a chest x-ray preop as well showing no evidence for acute cardiopulmonary disease. Old medical records were reviewed. ASSESSMENT AND PLAN: Ms. Gunter is a 62-year-old female patient coming into the orthopedic services today for an elective total knee replacement. We were asked to evaluate in consult. My recommendations at this point are: 1. Status post total knee replacement. I will defer the management to Dr. Grewal and her team. 2. History of postoperative deep venous thrombosis. Again at this point, it puts her at high risk. Prophylaxis has been ordered by Orthopedics and I will defer further recommendations and management to them, but I would get her warfarin at this point as soon as possible and she is already on Lovenox, so I am in agreement with this. 3. History of gastroesophageal reflux disease. Continue PPI therapy. 4. Asthma. Continue p.r.n. nebs. 5. Diabetes. Lispro sliding scale has been ordered. 6. History of hypothyroidism. Follow with primary. 7. Obstructive sleep apnea. Continue pulse oximeter for 24 hours. In addition to this, we will also go ahead and order her CPAP. 8. Arthritis. Follow with primary. 9. DVT prophylaxis. Again at high risk. She is going to be on Lovenox and warfarin. 10. Code status. Full code. 11. Fluids, electrolytes, and nutrition. I would recommend a consistent carb diet. TIME SPENT: Time spent on the consult was 60 minutes, greater than half the time was spent [id number] with the patient obtaining my history and physical, the other half of the time was spent going over the plan of care with the patient and implementing plan of care. I did discuss the plan of care with my attending, Dr. Mead, he is in agreement. BRETT KAN, JOCELYNE [id number]/[facility] #: [id number] JO
[2017-10-26] MEDS ORDERED: Morphine INJ* 2 MG/ML 1 ML CARPUJECT IV PRN (05:00)
[2017-10-26] MEDS ORDERED: oxyCODONE TAB* 5 MG TAB PO PRN (05:00)
[2017-10-26] MEDS ORDERED: oxyCODONE/Acetamin 5/325 MG* TAB PO PRN (05:00)
[2017-10-26] MEDS ORDERED: diPHENhydraMINE IV* 50 MG/ML 1 ml VIAL (BENADRYL) IV PRN (05:19)
[2017-10-26] MEDS ORDERED: Acetaminophen TAB* 325 MG PO PRN (05:19)
[2017-10-26] MEDS: Cyclobenzaprine TAB* 10 MG PO PRN ×3 (05:34→20:47)
[2017-10-26] MEDS: oxyCODONE/Acetamin 5/325 MG* TAB PO PRN ×3 (05:37→16:57)
[2017-10-26] MEDS: ceFAZolin 1 GM in Dextrose (*) 1 GM/50 ML BAG IVPB SCH ×2 (05:39→14:35)
[2017-10-26 05:41] LABS: ABS Basophils 0 10^3/ul (0-0.2); ABS Eosinophils 0 10^3/ul (0-0.6); ABS Lymphocytes 0.8 10^3/ul (1.0-4.8); ABS Monocytes 0.6 10^3/ul (0-0.8); ABS Neutrophils 6.9 10^3/ul (1.5-7.7); ABS Nucleated RBC 0 10^3/ul; Eosinophil % 0.1 % (0-6); Hematocrit 31 % (35-47); Hemoglobin 10.3 g/dl (12.0-16.0); Lymphocyte % 9.4 % (25-47); Mean Corpuscular HGB Conc 34 g/dl (31-36); Mean Corpuscular Hemoglobin 30 pg (27-31); Mean Corpuscular Volume 88 fL (80-97); Mean Platelet Volume 8 um3 (7.4-10.4); Nucleated Red Blood Cells % 0; Platelet Count 236 10^3/ul (150-450); Red Blood Count 3.46 10^6/ul (4.0-5.4); Red Cell Distribution Width 15 % (10.5-15); White Blood Count 8.3 10^3/ul (3.5-10.8)
[2017-10-26 05:43] LABS: INR 1.07 (0.77-1.02)
[2017-10-26 05:49] LABS: EGFR Non-African American 72.4 (>60)
[2017-10-26] MEDS ORDERED: Vitamin THERAPEUTIC TAB PO SCH (09:00)
[2017-10-26] MEDS: Insulin LISPRO* 1 UNITS UNIT SUBCUT SCH ×3 (10:03→16:48)
[2017-10-26] MEDS: Prenatal Vitamin TAB PO SCH (10:04)
[2017-10-26] MEDS: Magnesium Hydroxide LIQ* 30 ML UDC PO SCH ×2 (10:04→20:40)
[2017-10-26] MEDS: Omeprazole CAP* 20 MG PO SCH ×2 (10:04→20:47)
--- NOTE | 2017-10-26 10:54 | PN ---
Progress Note - Progress Note Date of Service: 10/26/17 SOAP: Subjective: 62 y/o female s/p R TKA by Dr. Grewal 10/25. Patient overall feeling well, worked with PT, increased pain overnight, controlled now. no questions/ concerns. VSS, afebrile overnight. Objective: General- Well appearing, NAD, AO SItting in chair comfortably MSK- R LE - DF/PF b/l, PT 2+, negative homans sign SITLT bl, surgical dressing intact, no induration around, no erythema, tenderness noted. Vital Signs Temp 98.0 F 10/26/17 07:56 Pulse 73 10/26/17 07:56 Resp 18 10/26/17 08:08 BP 119/59 10/26/17 07:56 Pulse Ox 100 10/26/17 08:00 Intake & Output 10/25/17 10/26/17 10/26/17 18:59 06:59 18:59 Intake Total 2570 2275 Output Total 300 520 300 Balance 2270 1755 -300 Weight 93.44 kg Intake: IV Fluids 2450 1115 ABX - CEFAZOLIN 115 LR 2400 1000 NS 50ML, Cefazolin 2G 50 Oral 120 1160 Output: Urine 300 Cary 300 500 Emesis 20 Assessment: Stable 62 y/o female s/p R TKA by Dr. Grewal 10/25. Plan: - DVT prophylaxis- lovenox, coumadin 8mg tonight- H/O DVT in past. - Continue PT/ OT - working well - Follow up with Dr. Grewal within 10-14 days - H&H stable - post-op IV ABX - running - Possible D/C tomorrow or Sunday - Pain meds- improved with flexeril. Active Medications Generic Name Dose Route Start Last Admin Trade Name Freq PRN Reason Stop Dose Admin Acetaminophen 650 mg 10/26/17 05:19 Tylenol Tab* PO Q4HR PRN FEVER/PAIN Albuterol 2.5 mg 10/25/17 14:14 Ventolin 2.5 Mg/3 Ml Neb.Radha* INH Q4H PRN SOB/WHEEZING Albuterol 2 puff 10/25/17 14:14 Ventolin Hfa Inhaler* INH Q4H PRN SHORTNESS OF BREATH Atorvastatin Calcium 20 mg 10/25/17 18:00 10/25/17 22:02 Lipitor* PO 20 mg QPM AMY Administration Cholecalciferol 2,000 units 10/25/17 22:00 10/25/17 22:03 Vitamin D Tab* PO 2,000 units QPM AMY Administration Cyclobenzaprine HCl 10 mg 10/25/17 14:03 10/26/17 05:34 Flexeril Tab* PO 10 mg TID PRN Administration SPASMS Dextrose 12.5 gm 10/25/17 16:30 D50w Syringe 50 Ml* IV PUSH .FOR FS < 60 - SS PRN FS < 60 Diphenhydramine HCl 25 mg 10/26/17 05:19 Benadryl Iv* IV Q6H PRN itching Docusate Sodium 100 mg 10/25/17 14:03 Colace Cap* PO BID PRN CONSTIPATION Enoxaparin Sodium 40 mg 10/25/17 15:00 10/25/17 22:53 Lovenox(*) SUBCUT Not Given Q24H AMY Cefazolin Sodium/Dextrose 1 gm in 50 mls @ 200 mls/hr 10/25/17 22:00 05:39 Kefzol 1 Gm In Dextrose Duplex (*) IVPB 10/26/17 14:14 200 mls/hr Q8H AMY Administration Lactated Ringer's 1,000 mls @ 100 mls/hr 10/25/17 15:00 10/26/17 06:27 Lactated Ringers 1000 Ml Bag* IV 100 mls/hr PER RATE AMY Administration Insulin Human Lispro 0 units 10/25/17 17:00 10/26/17 10:03 Humalog* SUBCUT 3 units AC AMY Administration Protocol Magnesium Hydroxide 30 ml 10/25/17 21:00 10/26/17 10:04 Milk Of Magnesia Liq* PO Not Given BID AMY Magnesium Hydroxide 30 ml 10/25/17 14:03 Milk Of Magnesia Liq* PO Q6H PRN constipation Montelukast Sodium 10 mg 10/25/17 21:00 10/25/17 22:05 Singulair Tab* PO 10 mg BEDTIME AMY Administration Morphine Sulfate 2 mg 10/26/17 05:00 Morphine Inj (Syringe)* IV Q2H PRN PAIN - BREAKTHROUGH Multivitamins 1 tab 10/26/17 09:00 10/26/17 10:04 Vitamin Tab* PO Not Given QAM AMY Naloxone HCl 0.08 mg 10/25/17 14:18 Narcan* IV 10/26/17 14:17 Q2M PRN severe induced resp depression Omeprazole 20 mg 10/25/17 21:00 10/26/17 10:04 Prilosec Cap* PO 20 mg BID AMY Administration Oxycodone HCl 10 mg 10/26/17 05:00 Roxycodone Tab* PO Q4H PRN PAIN - MODERATE TO SEVERE Oxycodone/Acetaminophen 2 tab 10/26/17 05:00 10/26/17 05:37 Percocet 5/325 Tab* PO 2 tab Q4H PRN Administration PAIN - MODERATE Oxycodone/Acetaminophen 1 tab 10/26/17 05:00 Percocet 5/325 Tab* PO Q4H PRN PAIN - MILD TO MODERATE Pharmacy Profile Note 1 note 10/28/17 14:21 Scopolamine Patch Remove* PATCH OFF 10/28/17 14:22 Q72H ONE Pharmacy Profile Note 1 note 10/26/17 17:00 Coumadin Daily Reminder* FOLLOW UP 1700 AMY Polyethylene Glycol/Electrolytes 17 gm 10/25/17 14:03 Miralax* PO DAILY PRN Constipation Ropinirole HCl 1 mg 10/25/17 21:00 10/25/17 22:03 Requip Tab* PO 1 mg BEDTIME AMY Administration Warfarin Sodium 8 mg 10/26/17 17:00 Coumadin Tab(*) PO 10/26/17 17:01 ONCE@1700 ONE Protocol
--- NOTE | 2017-10-26 14:18 | OP ---
OPERATIVE REPORT: DATE OF OPERATION: 10/25/17 DATE OF : 53 SURGEON: Adelaide Grewal MD. MASTER CONTROL ENGINEER: CRISTINO Lizama. Ms. Christian did help throughout the procedure with preparation of the leg, wound retraction, manipul ation of the knee and wound closure. ANESTHESIOLOGIST: Dr. Streeter. ANESTHESIA: Spinal. PRE-OP DIAGNOSIS: Severe endstage degenerative osteoarthritis of the right knee joint. POST-OP DIAGNOSIS: Severe endstage degenerative osteoarthritis of the right knee joint. OPERATIVE PROCEDURE: Right total knee arthroplasty. TOURNIQUET TIME: 55 minutes. COMPLICATIONS: None. SPECIMEN: Bone and cartilage from the right knee joint sent to pathology. HARDWARE USED: Cemented total knee arthroplasty hardware. Two packages of Simplex bone cement were used. For the femur, a size 4 narrow Oxinium femoral component, posterior stabilized, Legion type. For the tibia, a size 3 right Angelica II tibial base plate. For the insert, a 13-mm posterior stabil ized articular insert, size 3/4. For the patella, a 29-mm 3-peg all poly patella. BRIEF HISTORY/INDICATION: Ms. Gunter is a 62-year-old female with years of increasingly right knee pain. She failed conservative treatment with antiinflammatories, pain medication, intraarticular inj ections, and physical therapy. Plain films showed bone on bone arthritis. She had continued pain an d decreased quality of life. The patient elected to have right total knee arthroplasty. Informed co nsent was obtained from the patient. She understood the risks of surgery included but were not limit ed to bleeding, infection, damage to nearby structures, continued pain, need for further surgery, int raoperative fracture, nerve palsy, hardware failure or loosening, knee stiffness, loss of motion, str amelia, heart attack, blood clot, and . She wished to proceed. INTRAOPERATIVE FINDINGS: Intraoperatively, the patient was noted to have extensive osteophyte format ion. She has full thickness loss of cartilage in the medial and patellofemoral compartment. DESCRIPTION OF PROCEDURE: Ms. Gunter was identified in the preanesthesia unit. Her right lower extr emity was marked as the correct operative site. Informed consent was signed and placed in the chart. The patient was taken to the operating room and placed under spinal anesthesia with an adductor ner ve block. A Cary catheter was placed. Right lower extremity had a tourniquet placed on the thigh. The right lower extremity was prepped and draped in the usual sterile fashion. Preop time-out was mad e to correctly identify the patient, side, and site. Appropriate perioperative antibiotics were given within 1 hour of incision. A 12 cm midline incision was made with a 10-blade. A new 10-blade was used to make a standard medial parapatellar arthrotomy. The patella was subluxed laterally. Electrocautery was used to elevate the soft tissue off the superomedial tibia in the midsagittal plane. The knee was flexed up. The anter ior horn of the lateral meniscus and ACL were sharply released. A drill was used to enter the distal femur. Intramedullary distal femoral cutting guide was pinned into position on the distal femur. O scillating saw was used to make the distal femoral cut. External rotation guide pinned on the distal femur. The femur was sized to a size 4. Size 4 multi-cutting jig was pinned on the distal femur. Oscillating saw was used to make the appropriate 4 chamfer cuts. The PCL was completely released. The tibia was subluxed anteriorly. Extramedullary tibial cutting gu melody was pinned on the proximal tibia. The oscillating saw was used to make the proximal tibial cut p erpendicular to the mechanical axis of the tibia. The bone was carefully removed. The knee was brou ght out to full extension. There was full extension with a spacer block. Medial and lateral ligament s balancing was satisfactory. Flexion and extension gaps were well balanced. The knee was flexed up . Lamina regional operations director was placed both medially and laterally. Any remaining meniscus was removed using electrocautery. Curved osteotome was used to remove any posterior osteophytes. A size 4 narrow right femoral trial was chosen and impacted on to the distal femur. This had excellent fit on the distal femur. The box for the posterior stabilized implant was prepared using a reamer and box cut osteotom e. Size 3 tibial tray trial with a 11-mm insert trial was placed and the knee was taken through rang e of motion. The knee had full extension to 130 degrees of flexion. Patellofemoral tracking was sat isfactory. The patella was everted. 9-mm of patellar bone and cartilage was carefully removed using an oscillating saw. Patella was sized to a size 29. The 3- peg holes were drilled through the size 29 guide. Trial 29 patella was placed and the knee was taken through range of motion. Patellofemor al tracking was satisfactory. All trials were carefully removed. The tibia was subluxed anteriorly and sized to a size 3. Proxima l tibia was prepared using a size 3 keel punch. All bony cut surfaces were copiously irrigated with sterile saline and dried. Final implants were cemented into place starting with the tibia, followed by the femur and last the patella. A 13-mm insert trial was placed and the knee was brought out to f ull extension. Tourniquet was turned down at 55 minutes. The knee was copiously irrigated with ster ile saline. Once the cement had fully cured, the insert trial was removed. Any excess cement was re moved from around the hardware and capsule. Electrocautery was used to obtain meticulous hemostasis. Final insert chosen was a 13-mm posterior stabilized articular insert, size 3/4. This was locked in to position on the tibial tray without difficulty. Stability of the insert was checked and rechecked and noted to be stable. The knee was once again copiously irrigated with sterile saline. The extensor mechanism was closed using interrupted #1 Vicryls over a medial Hemovac drain. The rest of the incision was closed in layered fashion using 0 and 2-0 Vicryls. Skin was closed using runnin g 3-0 nylon suture. Sterile Xeroform, 4x4s, and Webril were used to cover the incision. Azeem wrap an d cold pack were placed over this. The patient's anesthesia was reversed without difficulty. She wa s taken to the PACU in stable condition. Intended weightbearing will be weightbearing as tolerated. Intended DVT prophylaxis will be Coumadin with a Lovenox bridge. [id number]/[facility] #: [id number]
[2017-10-26] MEDS: Enoxaparin(*) 40 MG/0.4 ML SYR SUBCUT SCH (14:34)
[2017-10-26] MEDS: Atorvastatin* 20 MG TAB PO SCH (16:57)
[2017-10-26] MEDS: Cholecalciferol TAB* 1000 UNITS PO SCH (17:00)
[2017-10-26] MEDS ORDERED: Warfarin TAB(*) 4 MG PO ONE (17:00)
--- NOTE | 2017-10-26 17:37 | PN ---
Subjective Date of Service: 10/26/17 Interval History: Patient seen and examined. No acute overnight events. States block has worn off , pain on operative side increasing but tolerable with pain meds. Participating in PT/OT without issue. Denies fever, fatigue or chills. No n/v. Objective Active Medications: Acetaminophen (Tylenol Tab*) 650 mg PO Q4HR PRN PRN Reason: FEVER/PAIN Albuterol (Ventolin 2.5 Mg/3 Ml Neb.Radha*) 2.5 mg INH Q4H PRN PRN Reason: SOB/WHEEZING Albuterol (Ventolin Hfa Inhaler*) 2 puff INH Q4H PRN PRN Reason: SHORTNESS OF BREATH Atorvastatin Calcium (Lipitor*) 20 mg PO QPM [facility] Last Admin: 10/26/17 16:57 Dose: 20 mg Cholecalciferol (Vitamin D Tab*) 2,000 units PO QPM [facility] Last Admin: 10/26/17 17:00 Dose: Not Given Cyclobenzaprine HCl (Flexeril Tab*) 10 mg PO TID PRN PRN Reason: SPASMS Last Admin: 10/26/17 14:34 Dose: 10 mg Dextrose (D50w Syringe 50 Ml*) 12.5 gm IV PUSH .FOR FS < 60 - SS PRN PRN Reason: FS < 60 Diphenhydramine HCl (Benadryl Iv*) 25 mg IV Q6H PRN PRN Reason: itching Docusate Sodium (Colace Cap*) 100 mg PO BID PRN PRN Reason: CONSTIPATION Enoxaparin Sodium (Lovenox(*)) 40 mg SUBCUT Q24H [facility] Last Admin: 10/26/17 14:34 Dose: 40 mg Lactated Ringer's (Lactated Ringers 1000 Ml Bag*) 1,000 mls @ 100 mls/hr IV PER RATE [facility] Last Admin: 10/26/17 06:27 Dose: 100 mls/hr Insulin Human Lispro (Humalog*) 0 units SUBCUT AC [facility] PRN Reason: Protocol Last Admin: 10/26/17 16:48 Dose: Not Given Magnesium Hydroxide (Milk Of Magnesia Liq*) 30 ml PO BID [facility] Last Admin: 10/26/17 10:04 Dose: Not Given Magnesium Hydroxide (Milk Of Magnesia Liq*) 30 ml PO Q6H PRN PRN Reason: constipation Montelukast Sodium (Singulair Tab*) 10 mg PO BEDTIME [facility] Last Admin: 10/25/17 22:05 Dose: 10 mg Morphine Sulfate (Morphine Inj (Syringe)*) 2 mg IV Q2H PRN PRN Reason: PAIN - BREAKTHROUGH Multivitamins ( Vitamin Tab*) 1 tab PO QAM [facility] Last Admin: 10/26/17 10:04 Dose: Not Given Omeprazole (Prilosec Cap*) 20 mg PO BID [facility] Last Admin: 10/26/17 10:04 Dose: 20 mg Oxycodone HCl (Roxycodone Tab*) 10 mg PO Q4H PRN PRN Reason: PAIN - MODERATE TO SEVERE Oxycodone/Acetaminophen (Percocet 5/325 Tab*) 2 tab PO Q4H PRN PRN Reason: PAIN - MODERATE Last Admin: 10/26/17 16:57 Dose: 2 tab Oxycodone/Acetaminophen (Percocet 5/325 Tab*) 1 tab PO Q4H PRN PRN Reason: PAIN - MILD TO MODERATE Pharmacy Profile Note (Scopolamine Patch Remove*) 1 note PATCH OFF Q72H ONE Stop: 10/28/17 14:22 Pharmacy Profile Note (Coumadin Daily Reminder*) 1 note FOLLOW UP 1700 [facility] Last Admin: 10/26/17 16:59 Dose: 1 note Polyethylene Glycol/Electrolytes (Miralax*) 17 gm PO DAILY PRN PRN Reason: Constipation Ropinirole HCl (Requip Tab*) 1 mg PO BEDTIME [facility] Last Admin: 10/25/17 22:03 Dose: 1 mg Vital Signs - 8 hr 10/26/17 10/26/17 10/26/17 11:14 11:20 13:25 Temperature 97.4 F Pulse Rate 81 Respiratory 18 16 18 Rate Blood Pressure 136/59 (mmHg) O2 Sat by Pulse 98 Oximetry 10/26/17 10/26/17 10/26/17 14:34 15:15 16:49 Temperature 98.9 F Pulse Rate 82 Respiratory 18 16 18 Rate Blood Pressure 119/67 (mmHg) O2 Sat by Pulse 97 Oximetry 10/26/17 16:57 Temperature Pulse Rate Respiratory 18 Rate Blood Pressure (mmHg) O2 Sat by Pulse Oximetry Oxygen Devices in Use Now: Nasal Cannula Appearance: Alert, NAD Eyes: PERRLA Ears/Nose/Mouth/Throat: NL Teeth, Lips, Gums, Mucous Membranes Moist Neck: NL Appearance and Movements; NL JVP, Trachea Midline Respiratory: Symmetrical Chest Expansion and Respiratory Effort, Clear to Auscultation Cardiovascular: NL Sounds; No Murmurs; No JVD, RRR, No Edema Abdominal: NL Sounds; No Tenderness; No Distention Extremities: - - dressing CDI Neurological: Alert and Oriented x 3, NL Sensation Nutrition: Taking PO's Result Diagrams: 10/26/17 05:01 10/26/17 05:01 Assess/Plan/Problems-Billing Assessment: This is a 62 year old female with end stage OA of the knee, DM, HTN, HLP, GERD, ANALY, Asthma and prior DVT that presented to Dr. Grewal for Right TKA. - Patient Problems (1) S/P total knee arthroplasty Code(s): Z96.659 - PRESENCE OF UNSPECIFIED ARTIFICIAL KNEE JOINT SNOMED Code(s ): 6157239246512 Comment: - POC as per ortho - Pain control, DVT prophy lovenox to coumadin bridge - OOB with PT/OT - Bowel regimen while on narcotics (2) Diabetes Code(s): E11.9 - TYPE 2 DIABETES MELLITUS WITHOUT COMPLICATIONS SNOMED Code(s) : 81527258 Comment: - BG stable, continue Lispro SS AC and HS (3) GERD (gastroesophageal reflux disease) Code(s): K21.9 - GASTRO-ESOPHAGEAL REFLUX DISEASE WITHOUT ESOPHAGITIS SNOMED Code(s): 716783169 Comment: - Continue PPI (4) Asthma Code(s): J45.909 - UNSPECIFIED ASTHMA, UNCOMPLICATED SNOMED Code(s): 832560479 Comment: - Albuterol as needed, stable (5) ANALY (obstructive sleep apnea) Code(s): G47.33 - OBSTRUCTIVE SLEEP APNEA (ADULT) (PEDIATRIC) SNOMED Code(s): 36296592 Comment: - Recommend CPAP at night - Monitor sats Status and Disposition: Remain inpatient per ortho
[2017-10-26] MEDS: Docusate CAP* 100 MG PO PRN (20:47)
[2017-10-26] MEDS: Montelukast Sodium TAB* 10 MG PO SCH (20:47)
[2017-10-26] MEDS: rOPINIRole TAB* 1 MG PO SCH (20:47)
[2017-10-27] MEDS: oxyCODONE/Acetamin 5/325 MG* TAB PO PRN ×4 (00:05→13:25)
[2017-10-27 05:21] LABS: Hematocrit 31 % (35-47); Hemoglobin 10.4 g/dl (12.0-16.0); Mean Platelet Volume 8 um3 (7.4-10.4); Platelet Count 246 10^3/ul (150-450)
[2017-10-27 05:26] LABS: INR 1.71 (0.77-1.02)
--- NOTE | 2017-10-27 08:43 | PN ---
Progress Note - Progress Note Date of Service: 10/27/17 SOAP: Subjective: patient resting comfortably with no complaints Objective: Vital Signs Temp Pulse Resp BP Pulse Ox 98.7 F 97 18 134/71 96 10/27/17 04:12 10/27/17 04:12 10/27/17 06:00 10/27/17 04:12 10/27/17 04:12 Laboratory Last Values WBC 8.3 10^3/ul (3.5-10.8) 10/26/17 05:01 RBC 3.46 10^6/ul (4.0-5.4) L 10/26/17 05:01 Hgb 10.4 g/dl (12.0-16.0) L 10/27/17 04:44 Hct 31 % (35-47) L 10/27/17 04:44 MCV 88 fL (80-97) 10/26/17 05:01 MCH 30 pg (27-31) 10/26/17 05:01 MCHC 34 g/dl (31-36) 10/26/17 05:01 RDW 15 % (10.5-15) 10/26/17 05:01 Plt Count 246 10^3/ul (150-450) 10/27/17 04:44 MPV 8 um3 (7.4-10.4) 10/27/17 04:44 Neut % (Auto) 82.8 % (38-83) 10/26/17 05:01 Lymph % (Auto) 9.4 % (25-47) L 10/26/17 05:01 Greer % (Auto) 7.5 % (0-7) H 10/26/17 05:01 Eos % (Auto) 0.1 % (0-6) 10/26/17 05:01 Baso % (Auto) 0.2 % (0-2) 10/26/17 05:01 Absolute Neuts (auto) 6.9 10^3/ul (1.5-7.7) 10/26/17 05:01 Absolute Lymphs (auto) 0.8 10^3/ul (1.0-4.8) L 10/26/17 05:01 Absolute Monos (auto) 0.6 10^3/ul (0-0.8) 10/26/17 05:01 Absolute Eos (auto) 0 10^3/ul (0-0.6) 10/26/17 05:01 Absolute Basos (auto) 0 10^3/ul (0-0.2) 10/26/17 05:01 Absolute Nucleated RBC 0 10^3/ul 10/26/17 05:01 Nucleated RBC % 0 10/26/17 05:01 INR (Anticoag Therapy) 1.71 (0.77-1.02) H 10/27/17 04:44 Sodium 135 mmol/L (133-145) 10/26/17 05:01 Potassium 4.0 mmol/L (3.5-5.0) 10/26/17 05:01 Chloride 103 mmol/L (101-111) 10/26/17 05:01 Carbon Dioxide 27 mmol/L (22-32) 10/26/17 05:01 Anion Gap 5 mmol/L (2-11) 10/26/17 05:01 BUN 16 mg/dL (6-24) 10/26/17 05:01 Creatinine 0.80 mg/dL (0.51-0.95) 10/26/17 05:01 Est GFR ( Amer) 93.2 (>60) 10/26/17 05:01 Est GFR (Non-Af Amer) 72.4 (>60) 10/26/17 05:01 BUN/Creatinine Ratio 20.0 (8-20) 10/26/17 05:01 Glucose 182 mg/dL (70-100) H 10/26/17 05:01 POC Glucose (mg/dL) 158 mg/dL (70-100) H 10/27/17 07:22 Calcium 8.5 mg/dL (8.6-10.3) L 10/26/17 05:01 incision: c/d; dressing changed Assessment: s/p right TKA; POD #2 Plan: 1) continue PT/OT- WBAT 2)Lovenox/Coumadin/SCD's for DVT prophylaxis 3) home today; RTC 2 weeks
[2017-10-27] MEDS: Docusate CAP* 100 MG PO PRN (08:50)
[2017-10-27] MEDS: Prenatal Vitamin TAB PO SCH (08:50)
[2017-10-27] MEDS: Omeprazole CAP* 20 MG PO SCH (08:50)
[2017-10-27] MEDS: Insulin LISPRO* 1 UNITS UNIT SUBCUT SCH ×2 (08:51→11:37)
[2017-10-27] MEDS: Polyethylene Glycol 3350* 17 GM PACKET PO PRN ×2 (08:51→11:32)
[2017-10-27] MEDS: Magnesium Hydroxide LIQ* 30 ML UDC PO SCH (08:51)
--- NOTE | 2017-10-27 09:44 | PN ---
Subjective Date of Service: 10/27/17 Interval History: Patient seen and examined. Feeling well, ambulating ad lobito. States pain is well controlled. Still constipated but improving. Sugars well controlled. No complaints and no overnight events. Will be discharge this afternoon per ortho service. Objective Active Medications: Acetaminophen (Tylenol Tab*) 650 mg PO Q4HR PRN PRN Reason: FEVER/PAIN Albuterol (Ventolin 2.5 Mg/3 Ml Neb.Radha*) 2.5 mg INH Q4H PRN PRN Reason: SOB/WHEEZING Albuterol (Ventolin Hfa Inhaler*) 2 puff INH Q4H PRN PRN Reason: SHORTNESS OF BREATH Atorvastatin Calcium (Lipitor*) 20 mg PO QPM COUNTS INCLUDE 234 BEDS AT THE [facility] Last Admin: 10/26/17 16:57 Dose: 20 mg Cholecalciferol (Vitamin D Tab*) 2,000 units PO QPM COUNTS INCLUDE 234 BEDS AT THE [facility] Last Admin: 10/26/17 17:00 Dose: Not Given Cyclobenzaprine HCl (Flexeril Tab*) 10 mg PO TID PRN PRN Reason: SPASMS Last Admin: 10/26/17 20:47 Dose: 10 mg Dextrose (D50w Syringe 50 Ml*) 12.5 gm IV PUSH .FOR FS < 60 - SS PRN PRN Reason: FS < 60 Diphenhydramine HCl (Benadryl Iv*) 25 mg IV Q6H PRN PRN Reason: itching Docusate Sodium (Colace Cap*) 100 mg PO BID PRN PRN Reason: CONSTIPATION Last Admin: 10/27/17 08:50 Dose: 100 mg Enoxaparin Sodium (Lovenox(*)) 40 mg SUBCUT Q24H COUNTS INCLUDE 234 BEDS AT THE [facility] Last Admin: 10/26/17 14:34 Dose: 40 mg Lactated Ringer's (Lactated Ringers 1000 Ml Bag*) 1,000 mls @ 100 mls/hr IV PER RATE COUNTS INCLUDE 234 BEDS AT THE [facility] Last Admin: 10/26/17 06:27 Dose: 100 mls/hr Insulin Human Lispro (Humalog*) 0 units SUBCUT AC AMY PRN Reason: Protocol Last Admin: 10/27/17 08:51 Dose: 3 units Magnesium Hydroxide (Milk Of Magnesia Liq*) 30 ml PO BID COUNTS INCLUDE 234 BEDS AT THE [facility] Last Admin: 10/27/17 08:51 Dose: Not Given Magnesium Hydroxide (Milk Of Magnesia Liq*) 30 ml PO Q6H PRN PRN Reason: constipation Montelukast Sodium (Singulair Tab*) 10 mg PO BEDTIME COUNTS INCLUDE 234 BEDS AT THE [facility] Last Admin: 10/26/17 20:47 Dose: 10 mg Morphine Sulfate (Morphine Inj (Syringe)*) 2 mg IV Q2H PRN PRN Reason: PAIN - BREAKTHROUGH Multivitamins ( Vitamin Tab*) 1 tab PO QAM COUNTS INCLUDE 234 BEDS AT THE [facility] Last Admin: 10/27/17 08:50 Dose: 1 tab Omeprazole (Prilosec Cap*) 20 mg PO BID COUNTS INCLUDE 234 BEDS AT THE [facility] Last Admin: 10/27/17 08:50 Dose: 20 mg Oxycodone HCl (Roxycodone Tab*) 10 mg PO Q4H PRN PRN Reason: PAIN - MODERATE TO SEVERE Oxycodone/Acetaminophen (Percocet 5/325 Tab*) 2 tab PO Q4H PRN PRN Reason: PAIN - MODERATE Last Admin: 10/27/17 08:50 Dose: 2 tab Oxycodone/Acetaminophen (Percocet 5/325 Tab*) 1 tab PO Q4H PRN PRN Reason: PAIN - MILD TO MODERATE Pharmacy Profile Note (Scopolamine Patch Remove*) 1 note PATCH OFF Q72H ONE Stop: 10/28/17 14:22 Pharmacy Profile Note (Coumadin Daily Reminder*) 1 note FOLLOW UP 1700 COUNTS INCLUDE 234 BEDS AT THE [facility] Last Admin: 10/26/17 16:59 Dose: 1 note Polyethylene Glycol/Electrolytes (Miralax*) 17 gm PO DAILY PRN PRN Reason: Constipation Last Admin: 10/27/17 08:51 Dose: 17 gm Ropinirole HCl (Requip Tab*) 1 mg PO BEDTIME COUNTS INCLUDE 234 BEDS AT THE [facility] Last Admin: 10/26/17 20:47 Dose: 1 mg Vital Signs - 8 hr 10/27/17 10/27/17 10/27/17 02:17 04:12 04:24 Temperature 98.7 F Pulse Rate 97 Respiratory 16 18 18 Rate Blood Pressure 134/71 (mmHg) O2 Sat by Pulse 96 Oximetry 10/27/17 10/27/17 06:00 08:50 Temperature Pulse Rate Respiratory 18 16 Rate Blood Pressure (mmHg) O2 Sat by Pulse Oximetry Oxygen Devices in Use Now: None, CPAP Appearance: Alert, NAD Eyes: No Scleral Icterus, PERRLA Ears/Nose/Mouth/Throat: Clear Oropharnyx, Mucous Membranes Moist Neck: NL Appearance and Movements; NL JVP, Trachea Midline Respiratory: Symmetrical Chest Expansion and Respiratory Effort, Clear to Auscultation Cardiovascular: NL Sounds; No Murmurs; No JVD, RRR, - - trace bipedal edema Abdominal: NL Sounds; No Tenderness; No Distention Skin: - - dressing CDI Neurological: Alert and Oriented x 3, NL Sensation, NL Muscle Strength and Tone Nutrition: Taking PO's Result Diagrams: 10/27/17 04:44 10/26/17 05:01 Assess/Plan/Problems-Billing Assessment: This is a 62 year old female with end stage OA of the knee, DM, HTN, HLP, GERD, ANALY, Asthma and prior DVT that presented to Dr. Grewal for Right TKA. - Patient Problems (1) S/P total knee arthroplasty Code(s): Z96.659 - PRESENCE OF UNSPECIFIED ARTIFICIAL KNEE JOINT SNOMED Code(s ): 7557162581464 Comment: - POD2, POC as per ortho - Pain control, DVT prophy lovenox to coumadin bridge - OOB with PT/OT - Bowel regimen while on narcotics - Progressing (2) Diabetes Code(s): E11.9 - TYPE 2 DIABETES MELLITUS WITHOUT COMPLICATIONS SNOMED Code(s) : 54207520 Comment: - BG stable, continue Lispro SS AC and HS while inpatient, may return to home regimen at discharge (3) GERD (gastroesophageal reflux disease) Code(s): K21.9 - GASTRO-ESOPHAGEAL REFLUX DISEASE WITHOUT ESOPHAGITIS SNOMED Code(s): 787785048 Comment: - Continue PPI (4) Asthma Code(s): J45.909 - UNSPECIFIED ASTHMA, UNCOMPLICATED SNOMED Code(s): 822051613 Comment: - Albuterol as needed, stable (5) ANALY (obstructive sleep apnea) Code(s): G47.33 - OBSTRUCTIVE SLEEP APNEA (ADULT) (PEDIATRIC) SNOMED Code(s): 80297877 Comment: - stable on CPAP Status and Disposition: Medically optimized for DC as per ortho. Counseling and/or Coordination of Care Minutes: coordinated with patient and staff
[2017-10-27] MEDS: Cyclobenzaprine TAB* 10 MG PO PRN (11:33)
[2017-10-27 11:36] VITALS: BP 148/71
--- NOTE | 2017-10-28 02:10 | DS ---
AMENDED REPORT NOW INCLUDES COSIGNER DESIGNATION - ESIGNED BEFORE ADJUSTMENT DISCHARGE SUMMARY: DATE OF ADMISSION: 10/25/17 DATE OF DISCHARGE: 10/27/17 SURGEON: Adelaide Grewal MD * (DICTATED BY CRISTINO HINDS) PRINCIPAL DIAGNOSIS: Severe end-stage osteoarthritis of the right knee. DISCHARGE DIAGNOSIS: Severe end-stage osteoarthritis of the right knee. HISTORY OF PRESENT ILLNESS: Ms. Gunter is a 62-year-old female with continued complaints of right knee pain secondary to end-stage osteoarthritis. She had failed conservative management, elected to proceed with a right total knee arthroplasty, which was scheduled for 10/25/[address] Grewal. HOSPITAL COURSE: Ms. Gunter was admitted electively to the hospital on and underwent a right total knee arthroplasty. She tolerated the procedure well with no complications. Postoperatively, she was placed on Coumadin and Lovenox for DVT prophylaxis. On postoperative day 1, her H and H was 10.3 and 31. On postoperative day 2, her H and H was 10.4 and 31. Her INR went from 1.07 to 1.71. She remained afebrile and her vital signs were stable. She was ambulating well with physical therapy and she was discharged home on 10/27/17. DISCHARGE MEDICATIONS: 1. Percocet 5/325 take one to two tabs every 4 to 6 hours as needed for pain. 2. Colace 100 mg two to three tabs daily for constipation. 3. Flexeril 10 mg two to three tabs daily for muscle spasms as needed. 4. Coumadin 2 mg tabs. 5. Albuterol inhaler. 6. Lipitor 20 mg daily. 7. Vitamin D. 8. Singulair 10 mg q.h.s. 9. Multivitamin. 10. Omeprazole 20 mg daily. 11. Requip 1 mg q.h.s. PHYSICAL EXAM UPON DISCHARGE: She was afebrile. Vital signs are stable. Her wound was clean and dry, is healing well with no signs of infection. She had 2 + dorsalis pedis pulse, 5/5 lower extremity strength and intact sensation. She was ambulating well with the aid of a walker. DISCHARGE INSTRUCTIONS: She is discharged home. She was given a prescription for Percocet to take every 4 to 6 hours as needed for pain as well as Colace for constipation. She was given Coumadin for DVT prophylaxis. Her Coumadin dosing is 6 mg ton and 6 mg Sunday night. VNS will recheck her INR on Sunday. She was also given Flexeril 10 mg tabs to take two to three times a day for muscle spasms. She is weightbearing as tolerated with the rolling walker. She will begin home physical therapy next week. She can start showering on Sunday, let the soap and water run over the incision and pat dry. She has been instructed not to submerge the knee in water, no bath, no pools, no hot tubs. She will follow up with Dr. Grewal two weeks after the surgery. I have asked her to call sooner with any questions or concerns. CRISTINO HINDS [id number]/CPS #: [id number] JO
[2017-10-28] MEDS ORDERED: Scopolamine PATCH Remove* 1 NOTE MISC PATCH OFF ONE (14:21)
== END 2017-10-27 14:00 | disposition home health service (06) | DRG 302 ==
LOC: AA 10:18 → SSU 18:12
PROVIDERS: ADMIT Orthopaedic Surgery Adult Reconstructive Orthopaedic Surgery; ATTEND Orthopaedic Surgery Adult Reconstructive Orthopaedic Surgery
PROC: 0SRC0J9 Replacement of Right Knee Joint with Synthetic Substitute, Cemented, Open Approach (ICD-10-PCS; principal; 2017-10-25 13:00)
DX: M17.11 Unilateral primary osteoarthritis, right knee (principal); E03.9 Hypothyroidism, unspecified; K21.9 Gastro-esophageal reflux disease without esophagitis; E78.00 Pure hypercholesterolemia, unspecified; E11.9 Type 2 diabetes mellitus without complications; Z96.652 Presence of left artificial knee joint; G47.33 Obstructive sleep apnea (adult) (pediatric); J45.909 Unspecified asthma, uncomplicated; G25.81 Restless legs syndrome; M25.761 Osteophyte, right knee; Z82.49 Family history of ischemic heart disease and other diseases of the circulatory system; Z83.3 Family history of diabetes mellitus; Z88.8 Allergy status to other drugs, medicaments and biological substances; Z80.0 Family history of malignant neoplasm of digestive organs; Z80.1 Family history of malignant neoplasm of trachea, bronchus and lung; Z79.01 Long term (current) use of anticoagulants; Z86.718 Personal history of other venous thrombosis and embolism; Z80.9 Family history of malignant neoplasm, unspecified
CPT/HCPCS: 36415; 80048; 85014; 85018; 85025; 85049; 85610; A9270-GY; J0690; J1650; J2250; J2405; J2704; J3010; J3490

== ENCOUNTER 2017-12-13 13:01 | Day surgery (SDC) | payer BC ==
--- NOTE | 2017-12-10 22:37 | HP ---
HISTORY AND PHYSICAL: DATE OF ADMISSION: 12/13/17 ATTENDING PROVIDER: Adelaide Grewal MD* (DICTATED BY CRISTINO SOTO) HISTORY OF PRESENT ILLNESS: Ms. Gunter is a 62-year-old female, now 6 weeks status post right total knee arthroplasty. Her pain is improving, but she is still reaching a strict endpoint on knee flexion. She has been working diligently with physical therapy, but having difficulty flexing more than 75 or 80 degrees. We have discussed the possibility of manipulation under anesthesia in order to break up any adhesions and the patient understands this and would like to proceed. PAST MEDICAL HISTORY: 1. Osteoarthritis. 2. Hypercholesterolemia. 3. Diabetes. PAST SURGICAL HISTORY: 1. Right total knee arthroplasty. 2. Left total knee arthroplasty in September 2016. 3. Right shoulder surgery by Dr. Johnson, unknown. 4. Bilateral knee arthroscopies. 5. Bilateral carpal tunnel releases. 6. No known anesthesia problems. MEDICATIONS: 1. Ibuprofen 800 mg. 2. Cyclobenzaprine 10 mg. 3. Percocet 5/325. 4. Pantoprazole sodium. 5. Ropinirole. 6. Lipitor. 7. Restasis. 8. Montelukast sodium. 9. Metformin. ALLERGIES: 1. ZOCOR. 2. ATROPINE. 3. CODEINE. 4. SYMBICORT. 5. ADHESIVE TAPE. SOCIAL HISTORY: Lives with . 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 Occasional drinking, only social wine, 1 glass. Denies any drug use. Denies any tobacco use. REVIEW OF SYSTEMS: General: The patient denies any fevers, chills, or night sweats. No known anesthesia problems. HEENT: The patient denies any headaches , lightheadedness, or syncopal episodes. Cardiothoracic: The patient denies any chest pain, heart palpitations, or edema. Pulmonary: The patient denies any shortness of breath with exertion, chronic cough, or COPD. GI: The patient denies any nausea, vomiting, diarrhea, or constipation. : The patient denies any nocturia, urinary frequency, urgency. MSK: The patient denies any chronic or intermittent back pain or fractures. Neuro: The patient denies any paresthesias, numbness, seizure, or stroke. Integument: The patient denies any abrasions, lesions, rashes, lumps, or open sores. PHYSICAL EXAMINATION GENERAL: The patient is alert and oriented x3 with appropriate mood and affect , appropriate dress and hygiene. HEENT: Normocephalic, atraumatic. Hearing and vision grossly intact. PULMONARY: Lungs are clear to auscultation bilaterally with no wheezes, rales, or rhonchi. CARDIO: Regular rate and rhythm. Normal S1 and S2. No appreciable S3 or S4. No murmurs, rubs, or gallops. MSK: Right lower extremity: Inspection of the right lower extremity reveals no erythema or ecchymosis. Skin is warm, dry, and intact. There is a healing incision present on the anterior portion of the knee consistent with a total knee arthroplasty. The patient's range of motion is 5 degree with extension to 80 degrees of flexion. She has no tenderness to palpation about the knee. No swelling. Distally neurovascularly intact with a 2+ dorsalis pedis pulse. IMPRESSION: Status post right total knee arthroplasty with formation of adhesions. PLAN: Ms. Gunter is a 62-year-old female, 6-week status post right total knee arthroplasty. Despite aggressive physical therapy, she is not yet to 90 degrees of flexion. She generally has arthrodesis and significant scar formation in the total knee. Today, we discussed risks and benefits including the manipulation under anesthesia of the right total knee arthroplasty. We will tentatively schedule her for 12/13/17, manipulation under anesthesia of the right knee, which she would like to proceed with. The patient will follow up 10 to 14 days postop for reevaluation and suture removal. CRISTINO SOTO [id number]/[facility] #: [id number] JO
[~2017-12-13 13:01] MED LIST changes: +Chloroprocaine 2%* 20 ML VIAL ONE; +Famotidine TAB* 20 MG PO ONE; +Lidocaine 2% PF * 5 ML VIAL ONE; +Metoclopramide IV* 5 MG/ML 2 ML VIAL IV SLOW PU ONE; +Midazolam* 1 MG/ML 2 ML VIAL (2 MG) ONE; -Midazolam* 1 MG/ML 5 ML VIAL (5 MG) ONE; +Propofol* 10 MG/ML 20 ML BTL IV PUSH ONE
[2017-12-13] MEDS ORDERED: ceFAZolin 2 GM PREMIX (*) 2 GM/50 ML BAG IVPB ONE (13:10)
[2017-12-13] MEDS ORDERED: Buffered Lidocaine 0.9% SYRIN* 5 ML/SYR SYRINGE ONE (13:10)
[2017-12-13] MEDS ORDERED: Famotidine TAB* 20 MG ONE (13:10)
[2017-12-13] MEDS ORDERED: Metoclopramide IV* 5 MG/ML 2 ML VIAL ONE (13:11)
[2017-12-13] MEDS ORDERED: Midazolam* 1 MG/ML 2 ML VIAL (2 MG) ONE (16:18)
[2017-12-13] MEDS ORDERED: Ondansetron INJ* 2 MG/ML VIAL IV PRN (16:30)
[2017-12-13] MEDS ORDERED: fentaNYL* 50 MCG/ML 2 ML VIAL (100 MCG VIAL) IV PRN (16:30)
[2017-12-13] MEDS ORDERED: Acetaminophen TAB* 325 MG PO PRN (16:30)
[2017-12-13] MEDS ORDERED: Naloxone* 0.4 MG/ML 1 ML VIAL IV PRN (16:30)
[2017-12-13] MEDS ORDERED: HYDROmorphone INJ* 1 MG/ML CARPUJECT SYRINGE IV PRN (16:30)
[2017-12-13] MEDS ORDERED: oxyCODONE TAB* 5 MG TAB ONE (16:46)
[2017-12-13] MEDS: oxyCODONE TAB* 5 MG TAB PO PRN ×2 (16:47→16:48)
[2017-12-13] MEDS ORDERED: Acetaminophen TAB* 325 MG ONE (16:47)
[2017-12-13 18:23] VITALS: BP 157/90
--- NOTE | 2017-12-13 18:55 | RAD ---
INDICATION: Prosthetic RIGHT knee manipulation. COMPARISON: Postoperative exam October 25, 2017. TECHNIQUE: 2.3 seconds fluoroscopy. FINDINGS: RIGHT total knee prosthesis in place without suspicious finding. IMPRESSION: Procedural fluoroscopy. CPT II Codes: G9500
--- NOTE | 2017-12-14 01:35 | OP ---
DATE OF OPERATION: 12/13/17 - [facility] DATE OF : 53 ATTENDING SURGEON: Adelaide Grewal MD. ANESTHESIOLOGIST: Dr. Franco. ANESTHESIA: Low MAC PRE-OP DIAGNOSES: Right total knee arthroplasty with stiffness and arthrofibrosis. POST-OP DIAGNOSES: Right total knee arthroplasty with stiffness and arthrofibrosis. OPERATIVE PROCEDURE: Right total knee arthroplasty manipulation under anesthesia. ESTIMATED BLOOD LOSS: None. COMPLICATIONS: None. BRIEF HISTORY/INDICATION: Ms. Gunter is a 62-year-old female who had right total knee arthroplasty, which was uncomplicated on 10/31/17. Postoperatively she advanced normally except with some stiffness with range of motion. Despite physical therapy, again she failed to flex more than 75 degrees at her last appointment. The patient's options were given to her and she elected to proceed with manipulation under anesthesia of the right knee to improve her range of motion. Informed consent was obtained from the patient. She understood the risks of the procedure included, but were not limited to bleeding , damage to nearby structures, periprosthetic fracture, continued stiffness of arthrofibrosis, stroke, heart attack, blood clot and . Patient wished to proceed. INTRAOPERATIVE FINDINGS: Intraoperatively, the patient was noted to have pre- manipulation range of motion of 0 to 70 degrees of flexion. Post manipulation she was found to have 0 to 125 degrees of flexion. DESCRIPTION OF PROCEDURE: Ms. Gunter was identified in the preanesthesia unit. Her right lower extremity was marked as the correct operative side. Informed consent was signed and placed in the chart. The patient was taken to the operating room. She was placed under anesthesia without difficulty. Preop time-out was made to correctly identify the patient's side and site. Preop range of motion was documented at 0 to 70 degrees of flexion. The knee was gently flexed and extended. Gentle pressure was applied with flexion each time and incrementally increased. Audible scar tissue breakup was heard. The knee was eventually flexed easily to 125 degrees. This is documented. AP and C-arm radiologic plain films were obtained in the both AP and lateral plane to ensure no periprosthetic fracture. There were no visible fractures on these films. The patient's anesthesia was reversed without difficulty and she was taken to the PACU in stable condition. Intended weightbearing will be weightbearing as tolerated with aggressive physical therapy to work on range of motion and she will follow up with me in 1 week's time for reevaluation. [id number]/[facility]PS #: [id number] JO
== END 2017-12-13 17:48 | disposition home or self-care (01) ==
LOC: OR 13:01
PROVIDERS: ATTEND Orthopaedic Surgery Adult Reconstructive Orthopaedic Surgery
DX: Z98.1 Arthrodesis status (principal); E11.9 Type 2 diabetes mellitus without complications; Z79.84 Long term (current) use of oral hypoglycemic drugs; E78.5 Hyperlipidemia, unspecified; M19.90 Unspecified osteoarthritis, unspecified site; G47.33 Obstructive sleep apnea (adult) (pediatric); K21.9 Gastro-esophageal reflux disease without esophagitis; J45.909 Unspecified asthma, uncomplicated; Z68.38 Body mass index [BMI] 38.0-38.9, adult
CPT/HCPCS: 76000; A9270-GY; J0690; J2250; J2400; J2704; J2765; J3010

== ENCOUNTER 2018-03-29 06:45 | Day surgery (SDC) | payer BC ==
--- NOTE | 2018-03-18 14:51 | HP ---
PREOPERATIVE HISTORY AND PHYSICAL EXAM: DATE OF ADMISSION/SURGERY: 03/29/18 DATE OF OFFICE VISIT/ENCOUNTER: 03/14/18 ATTENDING SURGEON: Mariam Romano MD * (DICTATED BY CRISTINO SOSA) PROCEDURE: Right arm excision mass. CHIEF COMPLAINT: Right arm mass. HISTORY OF PRESENT ILLNESS: This is a 62-year-old female, who complains of a lump in the mid aspect of her right upper arm, which has gradually gotten larger over time and more bothersome over time. She first noticed it in the beginning of 2017, it was quite small initially, but has grown over time and over the last few months, it started causing some numbness on the dorsal aspect of her right thumb, which has now progressed to her index and middle fingers as well especially when she palpates the lump. An MRI did not show any discrete soft tissue mass. However, on clinical exam, it appears to be a lipoma that is irritating the radial nerve. The patient would like to have it removed surgically. PAST MEDICAL HISTORY: 1. Hypercholesterolemia. 2. Restless legs syndrome. 3. Dry eyes. 4. Diabetes, type 2. 5. GERD. 6. History of an aortic valve disorder with an associated murmur. 7. Sleep apnea, with CPAP. 8. Hypothyroidism. 9. History of DVT in 2007. PAST SURGICAL HISTORY: 1. Bilateral knee arthroscopies. 2. Bilateral total knee arthroplasties. 3. Bilateral carpal tunnel releases. 4. Right shoulder surgery. 5. Hysteroscopy. 6. Basal cell carcinoma removed from the back. CURRENT MEDICATIONS: 1. Albuterol sulfate 1 vial via nebulizer four times daily p.r.n. 2. Furosemide 20 mg daily p.r.n. 3. Ibuprofen 800 mg 1 tab q.8 hours p.r.n. 4. Lipitor 20 mg daily. 5. Metformin HCl ER 500 mg 2 tabs daily. 6. Montelukast sodium 10 mg 1 tab daily. 7. Multivitamin daily. 8. Pantoprazole sodium 40 mg twice a day. 9. ProAir HFA 2 puffs q.4 hours p.r.n. 10. Ropinirole HCl 1 mg 2 at night. 11. Vitamin B complex daily. ALLERGIES: ATROPINE causes tachycardia; CODEINE, ZOCOR, and SYMBICORT cause hives; ADHESIVE TAPE causes skin irritation. 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 She denies tobacco use and recreational drug use. She does drink alcohol on occasion. REVIEW OF SYSTEMS: General: Negative for fevers, chills, night sweats, unexplained weight loss/gain. No known anesthesia problems in the past. HEENT : Negative for headache, lightheadedness, syncopal episodes, visual changes. Integumentary: Negative for abrasions, lesions, or open wounds. Cardiothoracic : Negative for hypertension, chest pain, palpitations, edema. Respiratory: Negative for shortness of breath with exertion, chronic cough, COPD, wheezing. GI: Negative for nausea, vomiting, diarrhea, constipation, GERD. : Negative for nocturia, urinary frequency, urgency, history of UTIs, kidney problems. Musculoskeletal: Positive for current complaint. Neurological: Negative for paresthesias, numbness, history of seizure, stroke, poor balance. Endocrine: Positive for diabetes. Positive for hypothyroid issues. Hematologic: Positive for history of DVT in left calf in 2007. Negative for easy bruising, anemia, bleeding disorders. Infectious Disease: Negative for history of MRSA, hepatitis C, HIV. PHYSICAL EXAMINATION GENERAL: Well-developed, well-nourished, 62-year-old female, in no acute distress. VITAL SIGNS: Height 5 feet 1 inch, weight 209 pounds. Pulse rate 80, blood pressure 168/90. HEENT: Normocephalic, atraumatic. Pupils are equal, round, and reactive to light and accommodation. Extraocular movements are intact. Throat is clear. NECK: Supple. No palpable lymph nodes. PULMONARY: Lungs are clear to auscultation bilaterally. No wheezes, rales, or rhonchi. CARDIOVASCULAR: Regular rate and rhythm. S1, S2. Murmur detected on auscultation. No rubs or gallops. No edema. ABDOMEN: Positive bowel sounds. Soft, nontender. NEUROLOGICAL: Alert and oriented x3. Cranial nerves II through XII are intact. Sensation is intact to light touch. MUSCULOSKELETAL: On exam of the right upper arm, she has an approximate 1 cm in diameter mass in the lateral aspect of the arm that is tender to palpation. She feels a tingling sensation going down her arm from the mass to the dorsal aspect of her thumb, index, and middle fingers. She has full range of motion of her shoulder, elbow, wrist, and fingers. There is no weakness. There are no skin changes. IMAGING STUDIES: MRI of right upper extremity showed no distinct soft tissue lesion. IMPRESSION: Right arm soft tissue mass, probable lipoma irritating the radial nerve. PLAN: The patient is scheduled to undergo a right arm excision mass with Dr. Romano on 03/29/18. She will return to the office 10 days postop for followup and suture removal. A prescription for Ultracet was e-scribed to the patient's pharmacy for postoperative pain management. CRISTINO SOSA [id number]/[facility] #: [id number] JO
[~2018-03-29 06:45] MED LIST changes: -Chloroprocaine 2%* 20 ML VIAL ONE; +Dexamethasone IV* 4 MG/ML 1 ML (4 MG) IV SLOW PU ONE; -Famotidine TAB* 20 MG PO ONE; -Lidocaine 2% PF * 5 ML VIAL ONE; -Metoclopramide IV* 5 MG/ML 2 ML VIAL IV SLOW PU ONE; -Midazolam* 1 MG/ML 2 ML VIAL (2 MG) ONE; -Propofol* 10 MG/ML 20 ML BTL IV PUSH ONE; -fentaNYL* 50 MCG/ML 2 ML VIAL (100 MCG VIAL) ONE
[2018-03-29] MEDS ORDERED: Lidocaine 1% INJ* 10 MG/ML 30 ML SDV ONE (07:01)
[2018-03-29] MEDS ORDERED: Dexamethasone IV* 4 MG/ML 1 ML (4 MG) ONE (07:09)
[2018-03-29] MEDS ORDERED: fentaNYL* 50 MCG/ML 2 ML VIAL (100 MCG VIAL) ONE (07:28)
[2018-03-29] MEDS ORDERED: Midazolam* 1 MG/ML 5 ML VIAL (5 MG) ONE (07:55)
[2018-03-29] MEDS ORDERED: Ondansetron INJ* 2 MG/ML VIAL ONE (07:55)
[2018-03-29] MEDS ORDERED: Ketorolac INJ* 30 MG/ML 1 ML VIAL ONE (07:55)
[2018-03-29] MEDS ORDERED: Propofol* 10 MG/ML 20 ML BTL IV PUSH ONE (07:55)
[2018-03-29] MEDS ORDERED: Bupivacaine 0.5% PF 10 ML VIAL INJ ONE (08:25)
[2018-03-29 09:04] VITALS: BP 137/77
[2018-03-29] MEDS ORDERED: Naloxone* 0.4 MG/ML 1 ML VIAL IV PRN (09:52)
--- NOTE | 2018-03-30 00:05 | OP ---
DATE OF OPERATION: 03/29/18 [facility] DATE OF : 53 SURGEON: Mariam Romano MD MEDICAL GENETICIST: CRISTINO Pierce ANESTHESIA: Local MAC. PRE-OP DIAGNOSIS: Right arm mass. POST-OP DIAGNOSIS: Right arm mass. OPERATIVE PROCEDURE: Removal of right arm mass. ESTIMATED BLOOD LOSS: Zero. TOURNIQUET TIME: No tourniquet was used during the procedure. INDICATIONS: Seema is a 62-year-old female, who has a painful mass on the upper lateral aspect of her arm. She presents for removal. DESCRIPTION OF PROCEDURE: The patient was brought to the operating room and was given a sedation anesthetic and a local infiltration of 10 cc of 1% plain lidocaine overlying the right arm mass. The skin of her right upper extremity was prepped and draped in the usual sterile fashion. A longitudinal incision was made centered over the mass. We dissected bluntly through the subcutaneous tissue. The mass appeared to be a lipoma. It was easily from the adipose tissue and sent for pathology. The wound was irrigated and after hemostasis was achieved, the wound was closed with subcutaneous suture of 2-0 and Vicryl and 4-0 nylon suture. The wound was dressed with Xeroform, 4x4, Webril, and Azeem wrap. The patient tolerated the procedure well and was brought to the recovery room in good condition. [id number]/[facility] #: [id number] MTDD
== END 2018-03-29 09:18 | disposition home or self-care (01) ==
LOC: OREAST 06:45
PROVIDERS: ATTEND Orthopaedic Surgery
DX: D17.21 Benign lipomatous neoplasm of skin and subcutaneous tissue of right arm (principal); E11.9 Type 2 diabetes mellitus without complications; Z79.84 Long term (current) use of oral hypoglycemic drugs; G47.33 Obstructive sleep apnea (adult) (pediatric); E03.9 Hypothyroidism, unspecified; Z86.718 Personal history of other venous thrombosis and embolism; E78.00 Pure hypercholesterolemia, unspecified; G25.81 Restless legs syndrome; J45.909 Unspecified asthma, uncomplicated; K21.9 Gastro-esophageal reflux disease without esophagitis
CPT/HCPCS: 88304; J1100; J1885; J2250; J2405; J2704; J3010